=== PATIENT | male | born 1930 | race Caucasian/White ===

== ENCOUNTER 2016-12-17 08:08 | Outpatient (CLI) | payer MEDICARE, OTHER ==
[2016-12-17 19:28] LABS: BASOPHILS # (AUTO) 0.2 10^3/uL (0.0-0.1); BASOPHILS % (AUTO) 3.4 %; EOSINOPHILS % (AUTO) 0.5 %; HCT - HEMATOCRIT 30.1 % (42.0-52.0); HGB - HEMOGLOBIN 10.2 g/dL (14.0-18.0); LYMPHOCYTES # (AUTO) 1.6 10^3/uL (1.5-3.5); LYMPHOCYTES % (AUTO) 22.4 %; MEAN CORPUSCULAR HGB CONC 33.8 g/dL (32.0-36.0); MEAN CORPUSCULAR VOLUME 118.3 fL (80.0-94.0); MEAN PLATELET VOLUME 12.4 fL (7.4-11.4); MONOCYTES # (AUTO) 1.1 10^3/uL (0.0-1.0); MONOCYTES % (AUTO) 14.7 %; NEUTROPHILS # (AUTO) 4.3 10^3/uL (1.5-6.6); NUCLEATED RED BLOOD CELLS AUTO 0.1 /100WBC; RED BLOOD COUNT 2.54 10^6/uL (4.70-6.10); RED CELL DISTRIBUTION WIDTH 14.4 % (12.0-15.0); UNCORRECTED WHITE BLOOD COUNT 7.8 x10^3/uL; WHITE BLOOD COUNT 7.2 x10^3/uL (4.8-10.8)
[2016-12-17 19:40] LABS: ALBUMIN/GLOBULIN RATIO 1.5 (1.0-2.2); BILIRUBIN,TOTAL 1.1 mg/dL (0.2-1.0); BUN - BLOOD UREA NITROGEN 19 mg/dL (6-20); CALCIUM 9.2 mg/dL (8.5-10.3); CARBON DIOXIDE - CO2 27 mmol/L (21-32); CHLORIDE 99 mmol/L (101-111); CHOL/HDL RATIO 2.2 (<5.0); CHOLESTEROL 91 mg/dL; CREATININE 1.3 mg/dL (0.6-1.2); GFR - MDRD 52 (>89); GLUCOSE 98 mg/dL (70-100); HDL CHOLESTEROL 41 mg/dL; POTASSIUM 4.5 mmol/L (3.5-5.0); SODIUM 135 mmol/L (135-145); TRIGLYCERIDES 47 mg/dL; VLDL CHOLESTEROL 9 mg/dL
[2016-12-17 20:00] LABS: PLATELET MORPHOLOGY 4+ GIANT PLATELETS (NORMAL)
[2016-12-17 20:01] LABS: PLATELET ESTIMATE, MANUAL DECREASED (<130,000) (NORMAL)
== END 2016-12-17 08:09 | disposition home or self-care (01) ==
LOC: LAB.R 08:08
PROVIDERS: ATTEND Internal Medicine
DX: D46.9 Myelodysplastic syndrome, unspecified (principal); I25.10 Atherosclerotic heart disease of native coronary artery without angina pectoris; I48.91 Unspecified atrial fibrillation; E78.5 Hyperlipidemia, unspecified; Z79.899 Other long term (current) drug therapy
CPT/HCPCS: 80053; 80061; 85025

== ENCOUNTER 2017-03-05 15:48 | Outpatient (CLI) | payer MEDICARE, OTHER ==
--- NOTE | 2017-03-06 15:55 | XRAY Report ---
CHEST, TWO VIEWS: 03/05/2017 HISTORY: Short of breath. COMPARISON: 03/19/2015 FINDINGS: Prior sternotomy changes. Mild cardiomegaly with right pleural effusion and basilar air-space disease. Additional right upper lobe air-space disease, question infectious versus mass. Suggest followup to complete radiographic clearing. The left lung is clear. No definite left effusion. No pneumothorax. IMPRESSION: AREA OF RIGHT UPPER LOBE AIR-SPACE PROCESS. POSSIBLY INFECTION. FOLLOW UP TO COMPLETE RADIOGRAPHIC CLEARING TO EXCLUDE UNDERLYING MASS IS SUGGESTED. RIGHT PLEURAL EFFUSION AND BASILAR AIR-SPACE DISEASE, ALSO NEW SINCE 2014. MILD CARDIOMEGALY AND CHANGES OF STERNOTOMY. JOB #: [id number] EXT JOB #: [id number] USMAN
== END 2017-03-05 15:49 | disposition home or self-care (01) ==
LOC: DI 15:48
PROVIDERS: ATTEND Internal Medicine
DX: R91.8 Other nonspecific abnormal finding of lung field (principal); J90 Pleural effusion, not elsewhere classified; I51.7 Cardiomegaly
CPT/HCPCS: 71020

== ENCOUNTER 2017-04-18 09:57 | Outpatient (CLI) | payer MEDICARE, OTHER ==
--- NOTE | 2017-04-18 17:55 | XRAY Report ---
DATE OF SERVICE: 04/18/2017 TWO VIEW CHEST: 04/18/2017 CLINICAL INDICATION: Followup pneumonia. COMPARISON: 03/05/2017 Frontal and lateral views of the chest demonstrate a normal cardiac silhouette. Changes of previous cardiac surgery and right subclavian single chamber pacemaker are stable. Right upper lobe infiltrate has decreased. Right pleural effusion has decreased. No new consolidation or pneumothorax is seen. IMPRESSION: Improving right upper lobe infiltrate and right effusion. TD: 04/18/2017 18:54
== END 2017-04-18 09:58 | disposition home or self-care (01) ==
LOC: DI 09:57
PROVIDERS: ATTEND Internal Medicine
DX: J15.9 Unspecified bacterial pneumonia (principal)
CPT/HCPCS: 71046

== ENCOUNTER 2017-06-12 09:49 | Outpatient (CLI) | payer MEDICARE, OTHER ==
--- NOTE | 2017-06-12 10:27 | XRAY Report ---
TWO VIEW CHEST: 06/12/2017. COMPARISON: TWO VIEW CHEST 04/18/2017. INDICATION: Fever. TECHNIQUE FINDINGS: Two views. FINDINGS: There is increasing right upper lobe and right lower lobe airspace disease. No pneumothorax or pleural effusion. ICD is noted. Stable cardiomegaly. IMPRESSION: INCREASED AIR SPACE DISEASE OF THE RIGHT UPPER LOBE AND RIGHT LOWER LOBE. LIKELY PNEUMONIA IN THE CORRECT CLINICAL SETTING. TD: 06/12/2017 10:27 [facility]
[2017-06-12 10:33] LABS: BASOPHILS # (AUTO) 0.1 10^3/uL (0.0-0.1); BASOPHILS % (AUTO) 1.4 %; HGB - HEMOGLOBIN 8.2 g/dL (14.0-18.0); LYMPHOCYTES # (AUTO) 0.7 10^3/uL (1.5-3.5); LYMPHOCYTES % (AUTO) 12.4 %; MEAN CORPUSCULAR HEMOGLOBIN 41.3 pg (27.0-31.0); MEAN CORPUSCULAR HGB CONC 34.2 g/dL (32.0-36.0); MEAN PLATELET VOLUME 9.6 fL (7.4-11.4); MONOCYTES # (AUTO) 1.8 10^3/uL (0.0-1.0); MONOCYTES % (AUTO) 32.9 %; NEUTROPHILS # (AUTO) 2.9 10^3/uL (1.5-6.6); NEUTROPHILS % (AUTO) 53.3 %; PLT - PLATELET COUNT 54 10^3/uL (130-450); RED BLOOD COUNT 1.99 10^6/uL (4.70-6.10); RED CELL DISTRIBUTION WIDTH 15.8 % (12.0-15.0); WHITE BLOOD COUNT 5.4 x10^3/uL (4.8-10.8)
[2017-06-12 10:50] LABS: ALBUMIN 3.6 g/dL (3.2-5.5); ALBUMIN/GLOBULIN RATIO 1.3 (1.0-2.2); BILIRUBIN,TOTAL 0.8 mg/dL (0.2-1.0); CALCIUM 8.4 mg/dL (8.5-10.3); CREATININE 1.2 mg/dL (0.6-1.2); CRP - C-REACTIVE PROTEIN 4.9 mg/dL (0-1.0); TOTAL PROTEIN 6.3 g/dL (6.7-8.2)
[2017-06-12 10:57] LABS: DIFFERENTIAL COMMENT MANUAL=AUTO DIFF
== END 2017-06-12 09:50 | disposition home or self-care (01) ==
LOC: DI 09:49
PROVIDERS: ATTEND Nurse Practitioner Primary Care
DX: R50.9 Fever, unspecified (principal); J98.4 Other disorders of lung
CPT/HCPCS: 36415; 71046; 80053; 83605; 85025; 85651; 86140; 87040

== ENCOUNTER 2017-06-19 09:50 | Observation (INO) | payer MEDICARE, OTHER ==
--- NOTE | 2017-06-19 10:22 | XRAY Report ---
EXAM: CHEST RADIOGRAPHY EXAM DATE: 06/19/2017 10:05 AM. CLINICAL HISTORY: Worsening pna. Cough. COMPARISON: 06/12/2017. TECHNIQUE: 2 views. FINDINGS: Lungs/Pleura: No focal opacities evident. Mild wispy airspace opacity seen before in the lateral righ t suprahilar region is resolved. There is no significant right basilar airspace opacity. No pleural e ffusion. No pneumothorax. Normal volumes. Mediastinum: Mild cardiomegaly, as before. Prior CABG. Pacemaker electrode at the right ventricular a pex, as before. Other: None. IMPRESSION: 1. Lungs are clear. 2. Mild cardiomegaly, as before. [facility] Referring Provider Line: [phone] SITE ID: [id number]
--- NOTE | 2017-06-19 10:22 | XRAY Preliminary Report ---
Exam: XR CHEST 2 VIEW X-RAY IMPRESSION: 1. Lungs are clear. 2. Mild cardiomegaly, as before. [facility] SITE ID: [id number]
[2017-06-19 10:45] LABS: BASOPHILS % (AUTO) 1.2 %; EOSINOPHILS % (AUTO) 1.4 %; HGB - HEMOGLOBIN 8.2 g/dL (14.0-18.0); LYMPHOCYTES % (AUTO) 12.1 %; MEAN CORPUSCULAR HEMOGLOBIN 40.2 pg (27.0-31.0); MEAN CORPUSCULAR HGB CONC 33.7 g/dL (32.0-36.0); MEAN CORPUSCULAR VOLUME 119.3 fL (80.0-94.0); MEAN PLATELET VOLUME 11.5 fL (7.4-11.4); MONOCYTES % (AUTO) 16.3 %; PLT - PLATELET COUNT 89 10^3/uL (130-450); RED BLOOD COUNT 2.04 10^6/uL (4.70-6.10); RED CELL DISTRIBUTION WIDTH 15.1 % (12.0-15.0); WHITE BLOOD COUNT 11.1 x10^3/uL (4.8-10.8)
[2017-06-19 10:55] LABS: CALCIUM 8.6 mg/dL (8.5-10.3); CREATININE 0.8 mg/dL (0.6-1.2)
[2017-06-19 11:03] LABS: ABNORMAL LYMPHS % (MANUAL) 0 %
--- NOTE | 2017-06-19 11:04 | ED Physician Documentation ---
History of Present Illness - Stated complaint Stated Complaint: Productive cough, fever - Chief complaint Chief Complaint: Resp - Additonal information Additional information: hx from pt 87 male sick for 10-12 days productive cough soa seen by PMD - had pna on CXR labs including blood cx and lactate reassuirng - felt safe to tx as an outpt and was doing better until last night when acutely more SOA back to PMD this AM and had gissel rales and ronchi and labored work of breathing so sent to ED also has gissel LE edema no abd pain NVD but has had loose black stools recently - on pradaxa Review of Systems Constitutional: reports: Myalgias, Fatigue. denies: Fever Cardiac: denies: Chest pain / pressure Respiratory: reports: Dyspnea, Cough GI: reports: Bloody / black stool. denies: Abdominal Pain, Vomiting Musculoskeletal: reports: Extremity swelling Neurologic: reports: Generalized weakness Endocrine: reports: Easy bruising / bleeding Immunocompromised: denies: Immunocompromised PD PAST MEDICAL HISTORY - Past Medical History Cardiovascular: Hypertension, High cholesterol, Coronary artery disease Respiratory: None Neuro: None Endocrine/Autoimmune: None GI: GERD : None HEENT: None Musculoskeletal: None Derm: Rosacea - Past Surgical History Past Surgical History: Yes General: Cholecystectomy, Appendectomy, Bowel surgery Cardiovascular: Pacemaker HEENT: Tonsil/Adenoidectomy - Present Medications Home Medications: Ambulatory Orders Medication Instructions Recorded Confirmed Atorvastatin Calcium 40 mg PO DAILY 12/23/12 06/19/17 Dabigatran Etexilate Mesylate 150 mg PO BID 12/23/12 06/19/17 [Pradaxa] Fish Oil Liquid 1 tsp PO DAILY 12/23/12 06/19/17 Lisinopril [Zestril] 10 mg PO DAILY 12/23/12 06/19/17 Metoprolol Succinate [Toprol Xl] 100 mg PO BID 12/23/12 06/19/17 Metromazole 0.75% 0 mg TOP DAILY 12/23/12 06/19/17 Multivitamin [Multivitamins] 1 each PO DAILY 12/23/12 06/19/17 - Allergies Allergies/Adverse Reactions: Allergies Allergy/AdvReac Type Severity Reaction Status Date / Time Penicillins Allergy Edema Verified 06/19/17 10:10 Sulfa (Sulfonamide Allergy Rash Verified 06/19/17 10:10 Antibiotics) - Social History Does the pt smoke?: No Smoking Status: Never smoker Does the pt drink ETOH?: No Does the pt have substance abuse?: No - Immunizations Immunizations are current?: Yes - POLST Patient has POLST: Yes PD ED PE NORMAL - Vitals Vital signs reviewed: Yes - General General: Alert and oriented X 3 - HEENT HEENT: PERRL - Neck Neck: Supple, no meningeal sign - Cardiac Cardiac: RRR - Respiratory Respiratory: Other (gissel ronchi and rales) - Abdomen Abdomen: Soft, Non tender - Rectal Rectal: Other (mostly mucous, pink, occult blood +, QC passed) - Derm Derm: Other (pale) - Extremities Extremities: Other (+ gissel edema) - Neuro Neuro: Alert and oriented X 3 Results - Vitals Vitals: Vital Signs - 24 hr 06/19/17 06/19/17 06/19/17 10:07 11:16 11:23 Temperature 36.6 C 36.4 C L Heart Rate 59 L 58 L 59 L Respiratory 16 22 18 Rate Blood Pressure 141/74 H 135/63 H 155/75 H O2 Saturation 100 100 100 Oxygen O2 Source Room air - EKG (time done) 1220 Rate: Rate (enter#) (60) Other comments: Other comments (appears to be paced at 60) - Labs Labs: Laboratory Tests 06/19/17 06/19/17 06/19/17 10:30 10:30 10:30 WBC 11.1 H RBC 2.04 L Hgb 8.2 L Hct 24.3 L MCV 119.3 H MCH 40.2 H MCHC 33.7 RDW 15.1 H Plt Count 89 L MPV 11.5 H Neut # Not Reportable Lymph # Not Reportable Nolan # Not Reportable Eos # Not Reportable Baso # Not Reportable Absolute Nucleated RBC Not Reportable Total Counted 100 Band Neuts % (Manual) 5 Abnorm Lymph % (Manual) 0 Metamyelocytes % 2 H Nucleated RBC % Not Reportable Neutrophils # (Manual) 7.9 H Lymphocytes # (Manual) 2.0 Monocytes # (Manual) 0.9 Eosinophils # (Manual) 0.1 Basophils # (Manual) 0.0 Differential Comment MANUAL DIFFERENTIAL Manual Slide Review Indicated Platelet Estimate DECREASED (<130,000) Platelet Morphology 2+ GIANT PLATELETS RBC Morph Micro Appear 2+ SPHEROCYTES Sodium 132 L Potassium 4.3 Chloride 100 L Carbon Dioxide 24 Anion Gap 8.0 BUN 15 Creatinine 0.8 Estimated GFR (MDRD) 91 Glucose 108 H Lactic Acid 1.7 Calcium 8.6 Troponin I B-Natriuretic Peptide Influenza A (Rapid) Influenza B (Rapid) Influenza Types A,B Ag 06/19/17 06/19/17 06/19/17 10:30 10:30 10:32 WBC RBC Hgb Hct MCV MCH MCHC RDW Plt Count MPV Neut # Lymph # Nolan # Eos # Baso # Absolute Nucleated RBC Total Counted Band Neuts % (Manual) Abnorm Lymph % (Manual) Metamyelocytes % Nucleated RBC % Neutrophils # (Manual) Lymphocytes # (Manual) Monocytes # (Manual) Eosinophils # (Manual) Basophils # (Manual) Differential Comment Manual Slide Review Platelet Estimate Platelet Morphology RBC Morph Micro Appear Sodium Potassium Chloride Carbon Dioxide Anion Gap BUN Creatinine Estimated GFR (MDRD) Glucose Lactic Acid Calcium Troponin I < 0.04 B-Natriuretic Peptide 826 H Influenza A (Rapid) Negative Influenza B (Rapid) Negative Influenza Types A,B Ag - - Rads (name of study) CXR Radiology: See rad report (prior R pna improved) PD MEDICAL DECISION MAKING - ED course ED course: prior pna resolved on CXR but now pt seems to be more CHF than pna - rales, swelling, elev BNP sx started overnight and trop neg so far add on EKG hx CAD and PPM, but no hx CHF, will give lasix but pt prob merits admit for serial trop and an echo given that CHF is new onset also anemic and heme + stool and on pradaxa - but hgb similar to prior so this is a more subacute issue so doubt that cause the acute SOA Departure - Departure Disposition: ED Place in Observation Clinical Impression: CHF (congestive heart failure) Qualifiers: Congestive heart failure type: unspecified Congestive heart failure chronicity : acute Qualified Code(s): I50.9 - Heart failure, unspecified GIB (gastrointestinal bleeding) Qualifiers: GI bleed type/associated pathology: unspecified gastrointestinal hemorrhage type Qualified Code(s): K92.2 - Gastrointestinal hemorrhage, unspecified Anemia Qualifiers: Anemia type: unspecified type Qualified Code(s): D64.9 - Anemia, unspecified Condition: Good
[2017-06-19 11:08] LABS: BAND NEUTROPHILS % (MANUAL) 5 %; EOSINOPHILS # (MANUAL) 0.1 10^3/uL (0-0.7); LYMPHOCYTES % (MANUAL) 18 %; METAMYELOCYTES % (MANUAL) 2 %; MONOCYTES # (MANUAL) 0.9 10^3/uL (0.0-1.0); NEUTROPHILS # (MANUAL) 7.9 10^3/uL (1.5-6.6); NEUTROPHILS % (MANUAL) 66 %
[2017-06-19 11:11] LABS: DIFFERENTIAL COMMENT MANUAL DIFFERENTIAL; PLATELET ESTIMATE, MANUAL DECREASED (<130,000) (NORMAL); PLATELET MORPHOLOGY 2+ GIANT PLATELETS (NORMAL)
[2017-06-19] MEDS ORDERED: FUROSEMIDE 40 MG/4 ML VIAL IVP STA (12:32)
[2017-06-19] MEDS ORDERED: TEMAZEPAM 15 MG CAPSULE PO PRN (14:35)
[2017-06-19] MEDS ORDERED: ACETAMINOPHEN 325 MG TABLET PO PRN (14:35)
[2017-06-19] MEDS ORDERED: ONDANSETRON 4 MG/2 ML VIAL IVP PRN (14:35)
[2017-06-19] MEDS ORDERED: SODIUM CHLORIDE FLUSH 0.9% 10 ML SYRINGE IVP PRN (14:35)
[2017-06-19] MEDS ORDERED: PROCHLORPERAZINE 10 MG/2 ML VIAL IVP PRN (14:35)
[2017-06-19] MEDS ORDERED: IPRATROPIUM/ALBUTEROL 3 ML NEB INH PRN (15:27)
--- NOTE | 2017-06-19 15:27 | HISTORY & PHYSICAL EXAMINATION ---
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 The patient states that he was in his normal state of health until about 10 days ago when he began having fever, cough and shortness of air. At that time the patient saw his primary care physician and was diagnosed with pneumonia. The patient was placed on azithromycin which he completed the course for 2 days ago. The patient states that he was feeling improved but last night began having labored breathing. Patient states that this morning he continued to have shortness of air. He states he also noticed that he had increased lower extremity swelling which drastically increased over the course of the last 24 hours. The patient denied any orthopnea or PND. The patient also denied any chest pain. The patient denied any palpitations. The patient states that he is very active and runs on a treadmill every other day. He states as long as he is walking or running on a flat surface he does not feel short of breath at baseline. He states when he does go up the hill like he did with his wheelbarrow a couple of weeks ago he does become short of breath. The patient states that he has noted that over the last month he has had gradually worsening shortness of breath. The patient denies any headaches, blurred vision, runny nose, sore throat, nasal congestion, difficulty swallowing, fevers, chills, abdominal pain, nausea , vomiting, diarrhea, constipation, increased urinary urgency, frequency or dysuria. The patient also denies any muscle aches, joint pains, joint swelling , back pain, neck stiffness, recent unintentional weight loss, changes in his appetite, hair loss, skin changes, night sweats or any focal neurologic deficits. On presentation to the emergency department the patient is afebrile he is slightly bradycardic with heart rate of 59 which is paced, mildly hypertensive but saturating well on room air. The patient continues to complain of shortness of breath especially with exertion. The patient's initial lab work showed a WBC of 11.1, hemoglobin of 8.2 and platelet count of 89. The patient' s hemoglobin and platelet count are chronically low. The patient was also found to be slightly hyponatremic with a sodium of 132 and had a significantly elevated BNP of 826. Patient's initial troponin was less than 0.04. The patient's flu swab was negative. The patient did undergo a chest x-ray in the emergency department which showed mild cardiomegaly and resolved airspace opacity in the right suprahilar area. The patient's EKG was paced and there was no significant ST changes. Given the patient's presentation it appears that he likely has new onset heart failure and is being placed in observation for an echocardiogram and treatment with Lasix. History - Past Medical History Cardiovascular: reports: Hypertension, High cholesterol, Coronary artery disease , Atrial fibrillation Respiratory: reports: None Neuro: reports: None Endocrine/Autoimmune: reports: None GI: reports: GERD : reports: None HEENT: reports: None Musculoskeletal: reports: None Derm: reports: Rosacea - Past Surgical History General: reports: Cholecystectomy, Appendectomy, Bowel surgery Cardiovascular: reports: Pacemaker HEENT: reports: Tonsil/Adenoidectomy - Family & Social History Family History: Mother: , CAD, Hypertension, Father: , CAD, Hypertension, Brother: Cancer (prostate cancer brother and grandfather), Other family: Cancer Living arrangement: At home Living Situation: With spouse/s.o. Social History Notes: Patient is originally from [place]. 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 He and his moved would be [place] to retire and have been living here ever since. They have 2 grown children both boys. 1 of his sons is here visiting him and lives in [place]. The patient does not smoke cigarettes but he does drink one bourbon and water at night. He denies any illicit drug use. - POLST Patient has POLST: Yes POLST Status: Full Code Meds/Allgy - Home Medications Home Medications: Ambulatory Orders Medication Instructions Recorded Confirmed Atorvastatin Calcium 40 mg PO DAILY 12/23/12 06/19/17 Dabigatran Etexilate Mesylate 150 mg PO BID 12/23/12 06/19/17 [Pradaxa] Fish Oil Liquid 1 tsp PO DAILY 12/23/12 06/19/17 Multivitamin [Multivitamins] 1 each PO DAILY 12/23/12 06/19/17 metroNIDAZOLE [Metronidazole] 1 applic TOP DAILY 12/23/12 06/19/17 Lisinopril [Zestril] 10 mg PO DAILY 06/19/17 06/19/17 Metoprolol Succinate [Toprol Xl] 100 mg PO BID 06/19/17 06/19/17 - Allergies Allergies/Adverse Reactions: Allergies Allergy/AdvReac Type Severity Reaction Status Date / Time Penicillins Allergy Edema Verified 06/19/17 10:10 Sulfa (Sulfonamide Allergy Rash Verified 06/19/17 10:10 Antibiotics) Review of Systems - Other Findings Other Findings: A comprehensive review of systems was performed the pertinent positives and negatives are stated above in the HPI and the remainder of the review of systems is negative. Exam - Vital Signs Reviewed Vital Signs: Yes Vital Signs: Vital Signs x48h Temp Pulse Resp BP Pulse Ox 06/19/17 11:23 59 L 18 155/75 H 100 06/19/17 11:16 36.4 C L 58 L 22 135/63 H 100 06/19/17 10:07 36.6 C 59 L 16 141/74 H 100 - Physical Exam General Appearance: positive: No acute distress, Alert Eyes Bilateral: positive: Normal inspection, PERRL, EOMI, No lid inflammation, Conjunctivae nml, No scleral icterus ENT: positive: ENT inspection nml, Pharynx nml, No signs of dehydration. negative: Purulent nasal drainage, Pharyngeal erythema, Oral lesions Neck: positive: Nml inspection, Thyroid nml, No JVD, Trachea midline. negative : Thyromegaly, Lymphadenopathy (R), Lymphadenopathy (L), Carotid bruit, Tracheal deviation Respiratory: positive: Chest non-tender, Wheezes (scattered), Rales (Bilateral about a third of the way up the lung) Cardiovascular: positive: Regular rate & rhythm, No murmur, No gallop Peripheral Pulses: positive: 2+ Abdomen: positive: Non-tender, No organomegaly, Nml bowel sounds, No distention. negative: Guarding, Rebound, Hepatomegaly Back: positive: Nml inspection. negative: CVA tenderness (R), CVA tenderness (L ) Skin: positive: Color nml, No rash, Warm. negative: Cyanosis, Diaphoresis, Pallor Extremities: positive: Non-tender, Full ROM, Nml appearance, Pedal edema (3+ bilateral). negative: Joint swelling Neurologic/Psychiatric: positive: Oriented x3, CN's nml (2-12), Motor nml, Sensation nml, Mood/affect nml Conclusion/Plan - Problem List (1) CHF (congestive heart failure) Conclusion/Plan: Patient presented with shortness of air occurring acutely overnight with increased lower extremity swelling and crackles on examination as well as elevated BNP. Patient has recently been treated for pneumonia and pneumonia appears to have resolved on chest x-ray. Although chest x-ray is not showing pulmonary vascular congestion it does show cardiomegaly. The patient does not have an elevated JVD or orthopnea. The patient does have history of coronary artery disease. This presentation appears most likely to be due to an acute congestive heart failure at this point without an echocardiogram it is impossible to say whether this is systolic or diastolic heart failure. Given the acute presentation patient will need further cardiac workup. Plan: Echocardiogram IV Lasix twice daily Fluid restriction 2 L Sodium restriction 2 g Strict I's and O's Daily weights Serial troponins Telemetry monitoring Qualifiers: Congestive heart failure type: unspecified Congestive heart failure chronicity: acute Qualified Code(s): I50.9 - Heart failure, unspecified (2) Hypertension Conclusion/Plan: Patient has history of hypertension and on presentation to the emergency department the patient is slightly hypertensive. Patient will be continued on his home blood pressure medications We will monitor blood pressure close We will titrate medications as needed Qualifiers: Hypertension type: essential hypertension Qualified Code(s): I10 - Essential (primary) hypertension (3) Atrial fibrillation Conclusion/Plan: Patient has history of atrial fibrillation and has a chronic pacemaker The patient appears to have controlled rate and rhythm on presentation Patient is on metoprolol and Pradaxa for anticoagulation We will continue the patient on his home medications and monitor on telemetry Qualifiers: Atrial fibrillation type: chronic Qualified Code(s): I48.2 - Chronic atrial fibrillation (4) Myelodysplastic syndrome Conclusion/Plan: Patient has history of myelodysplastic disorder and follows with Dr. 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 Patient's hemoglobin and platelet count appear to be stable Patient's low hemoglobin may also be contributing to his symptoms of shortness of breath (5) Hyperlipidemia Conclusion/Plan: Patient has history of hyperlipidemia and is on Lipitor at home we will continue his home dose of Lipitor Stable Qualifiers: Hyperlipidemia type: unspecified Qualified Code(s): E78.5 - Hyperlipidemia , unspecified - Lab Results Lab results reviewed: Yes Fish Bones: 06/19/17 10:30 06/19/17 10:30 Other Lab Results: Laboratory Results WBC 11.1 x10^3/uL (4.8-10.8) H 06/19/17 10:30 RBC 2.04 10^6/uL (4.70-6.10) L 06/19/17 10:30 Hgb 8.2 g/dL (14.0-18.0) L 06/19/17 10:30 Hct 24.3 % (42.0-52.0) L 06/19/17 10:30 MCV 119.3 fL (80.0-94.0) H 06/19/17 10:30 MCH 40.2 pg (27.0-31.0) H 06/19/17 10:30 MCHC 33.7 g/dL (32.0-36.0) 06/19/17 10:30 RDW 15.1 % (12.0-15.0) H 06/19/17 10:30 Plt Count 89 10^3/uL (130-450) L 06/19/17 10:30 MPV 11.5 fL (7.4-11.4) H 06/19/17 10:30 Neut # Not Reportable 06/19/17 10:30 Lymph # Not Reportable 06/19/17 10:30 [place] # Not Reportable 06/19/17 10:30 Eos # Not Reportable 06/19/17 10:30 Baso # Not Reportable 06/19/17 10:30 Absolute Nucleated RBC Not Reportable 06/19/17 10:30 Total Counted 100 06/19/17 10:30 Band Neuts % (Manual) 5 % (0-10) 06/19/17 10:30 Abnorm Lymph % (Manual) 0 % 06/19/17 10:30 Metamyelocytes % 2 % (-0) H 06/19/17 10:30 Nucleated RBC % Not Reportable 06/19/17 10:30 Neutrophils # (Manual) 7.9 10^3/uL (1.5-6.6) H 06/19/17 10:30 Lymphocytes # (Manual) 2.0 10^3/uL (1.5-3.5) 06/19/17 10:30 Monocytes # (Manual) 0.9 10^3/uL (0.0-1.0) 06/19/17 10:30 Eosinophils # (Manual) 0.1 10^3/uL (0-0.7) 06/19/17 10:30 Basophils # (Manual) 0.0 10^3/uL (0-0.1) 06/19/17 10:30 Differential Comment MANUAL DIFFERENTIAL 06/19/17 10:30 Manual Slide Review Indicated 06/19/17 10:30 Platelet Estimate DECREASED (<130,000) (NORMAL) 06/19/17 10:30 Platelet Morphology 2+ GIANT PLATELETS (NORMAL) 06/19/17 10:30 RBC Morph Micro Appear 1+ POLYCHROMASIA (NORMAL) 2+ MACROCYTOSIS (NORMAL) 2+ SPHEROCYTES (NORMAL) 06/19/17 10:30 RBC Morph Micro Appear 1+ POLYCHROMASIA (NORMAL) 2+ MACROCYTOSIS (NORMAL) 2+ SPHEROCYTES (NORMAL) 06/19/17 10:30 RBC Morph Micro Appear 1+ POLYCHROMASIA (NORMAL) 2+ MACROCYTOSIS (NORMAL) 2+ SPHEROCYTES (NORMAL) 06/19/17 10:30 Sodium 132 mmol/L (135-145) L 06/19/17 10:30 Potassium 4.3 mmol/L (3.5-5.0) 06/19/17 10:30 Chloride 100 mmol/L (101-111) L 06/19/17 10:30 Carbon Dioxide 24 mmol/L (21-32) 06/19/17 10:30 Anion Gap 8.0 (6-13) 06/19/17 10:30 BUN 15 mg/dL (6-20) 06/19/17 10:30 Creatinine 0.8 mg/dL (0.6-1.2) 06/19/17 10:30 Estimated GFR (MDRD) 91 (>89) 06/19/17 10:30 Glucose 108 mg/dL (70-100) H 06/19/17 10:30 Lactic Acid 1.7 mmol/L (0.5-2.2) 06/19/17 10:30 Calcium 8.6 mg/dL (8.5-10.3) 06/19/17 10:30 Troponin I < 0.04 ng/mL (<0.49) 06/19/17 10:30 B-Natriuretic Peptide 826 pg/mL (5-100) H 06/19/17 10:30 Influenza A (Rapid) Negative (Negative) 06/19/17 10:32 Influenza B (Rapid) Negative (Negative) 06/19/17 10:32 Influenza Types A,B Ag - 06/19/17 10:32 - Diagnostic Imaging Results Diagnostic Imaging Results: positive: Final report reviewed Diagnostic Imaging Results Comments: EXAM: [id number] ([id number]) EXAM: CHEST RADIOGRAPHY EXAM DATE: 06/19/2017 10:05 AM. CLINICAL HISTORY: Worsening pna. Cough. COMPARISON: 06/12/2017. TECHNIQUE: 2 views. FINDINGS: Lungs/Pleura: No focal opacities evident. Mild wispy airspace opacity seen before in the lateral right suprahilar region is resolved. There is no significant right basilar airspace opacity. No pleural effusion. No pneumothorax. Normal volumes. Mediastinum: Mild cardiomegaly, as before. Prior CABG. Pacemaker electrode at the right ventricular apex, as before. Other: None. IMPRESSION: 1. Lungs are clear. 2. Mild cardiomegaly, as before. - EKG Results EKG Interpreted Independently: Yes EKG Findings: Paced, no ST elevations Core Measures - Anticipated LOS I expect patient to be DC'd or transferred within 96 hours.: Yes - DVT/VTE - Prophylaxis VTE/DVT Device ordered at admit?: Yes
[2017-06-19] MEDS: FUROSEMIDE 40 MG/4 ML VIAL IVP SCH (18:03)
[2017-06-19] MEDS: SODIUM CHLORIDE FLUSH 0.9% 10 ML SYRINGE IVP SCH (18:03)
[2017-06-19] MEDS: METOPROLOL SUCCINATE 50 MG TABLET PO SCH (21:05)
[2017-06-19] MEDS: DABIGATRAN 75 MG CAPSULE PO SCH (21:06)
[2017-06-20] MEDS ORDERED: CEFEPIME 1 GM in SODIUM CHLORIDE 0.9% MINIBAG 100 ML IV SCH (01:00)
[2017-06-20] MEDS: SODIUM CHLORIDE FLUSH 0.9% 10 ML SYRINGE IVP SCH ×2 (01:08→08:49)
[2017-06-20] MEDS: FUROSEMIDE 40 MG/4 ML VIAL IVP SCH (07:06)
[2017-06-20 07:26] LABS: ALBUMIN 3.1 g/dL (3.2-5.5); BILIRUBIN,TOTAL 0.8 mg/dL (0.2-1.0); CALCIUM 8.2 mg/dL (8.5-10.3); CREATININE 0.8 mg/dL (0.6-1.2); MAGNESIUM 1.7 mg/dL (1.7-2.8); TOTAL PROTEIN 6.1 g/dL (6.7-8.2)
[2017-06-20 07:36] LABS: INR 1.6 (0.8-1.2); PT - PROTHROMBIN TIME 17.4 secs (9.9-12.6)
[2017-06-20 07:38] LABS: EOSINOPHILS % (AUTO) 0.6 %; HGB - HEMOGLOBIN 7.8 g/dL (14.0-18.0); LYMPHOCYTES % (AUTO) 20.9 %; MEAN CORPUSCULAR HEMOGLOBIN 39.3 pg (27.0-31.0); MEAN CORPUSCULAR HGB CONC 32.8 g/dL (32.0-36.0); MEAN CORPUSCULAR VOLUME 119.8 fL (80.0-94.0); MONOCYTES % (AUTO) 19.9 %; NEUTROPHILS % (AUTO) 56.6 %; RED BLOOD COUNT 1.99 10^6/uL (4.70-6.10); RED CELL DISTRIBUTION WIDTH 15.3 % (12.0-15.0); WHITE BLOOD COUNT 9.6 x10^3/uL (4.8-10.8)
[2017-06-20] MEDS ORDERED: POTASSIUM CHLORIDE 20 MEQ TABLET PO SCH (08:00)
[2017-06-20] MEDS ORDERED: MULTIVITAMIN TABLET PO SCH (08:00)
[2017-06-20 08:31] LABS: ABNORMAL LYMPHS % (MANUAL) 0 %
[2017-06-20] MEDS: DABIGATRAN 75 MG CAPSULE PO SCH (08:48)
[2017-06-20] MEDS: METOPROLOL SUCCINATE 50 MG TABLET PO SCH (08:49)
[2017-06-20 08:53] LABS: BAND NEUTROPHILS % (MANUAL) 2 %; EOSINOPHILS # (MANUAL) 0.1 10^3/uL (0-0.7); LYMPHOCYTES # (MANUAL) 1.8 10^3/uL (1.5-3.5); LYMPHOCYTES % (MANUAL) 19 %; MONOCYTES # (MANUAL) 1.5 10^3/uL (0.0-1.0); NEUTROPHILS # (MANUAL) 6.1 10^3/uL (1.5-6.6); NEUTROPHILS % (MANUAL) 62 %
[2017-06-20 08:55] LABS: DIFFERENTIAL COMMENT MANUAL DIFFERENTIAL
[2017-06-20] MEDS ORDERED: LISINOPRIL 5 MG TABLET PO SCH (09:00)
[2017-06-20] MEDS ORDERED: FAMOTIDINE 20 MG TABLET PO SCH (09:00)
[2017-06-20] MEDS ORDERED: ATORVASTATIN 40 MG TABLET PO SCH (09:00)
[2017-06-20] MEDS ORDERED: POLYETHYLENE GLYCOL 3350 17 GM PACKET PO SCH (09:00)
[2017-06-20 09:20] LABS: PLATELET ESTIMATE, MANUAL NORMAL (130-450,000) (NORMAL)
[2017-06-20 09:23] LABS: PLT - PLATELET COUNT 108 10^3/uL (130-450)
--- NOTE | 2017-06-20 11:07 | Discharge Plan ---
Discharge Plan Disposition: Home, Self Care Condition: Good Prescriptions: Furosemide [Lasix] 40 mg PO DAILY #30 tablet Potassium Chloride [K-Dur] 20 meq PO DAILY #30 tablet Diet: Cardiac Activity Restrictions: Activity as Tolerated Shower Restrictions: No Driving Restrictions: No Weight Bearing: Full Weight Instruction Topics: Heart Failure Meds Control, Heart Failure, Heart Failure Warning Signs, Heart Failure Tracking Weight, Heart Failure Being Active, Heart Failure Helpful Procedures, Heart Failure Diet Changes, Heart Failure Helpful Meds Additional Instructions or Follow Up instructions: You presented to the emergency department with shortness of breath and leg edema. We found that you have congestive heart failure and your ejection fraction is 45% which is decreased. You improved significantly with lasix and will be continued on lasix at home. You are already on optimal treatment with metoprolol and lisinopril which you should continue. I am also prescribing you potassium along with the lasix because lasix can cause you to lose potassium. Please follow up with your shipping and receiving assistant in 2 weeks. Follow-Up Care: [facility] - CHF Classes No Smoking: If you smoke, Please STOP! Call for help. Follow-up with: Boris Wilkerson MD [Primary Care Provider] -
[2017-06-20 12:51] VITALS: BP 104/50
--- NOTE | 2017-06-20 14:12 | DISCHARGE SUMMARY ---
Discharge Summary Admit Date: 06/19/17 Discharge Date: 06/20/17 Discharging Provider: Lalito Lin MD Primary Care Provider: Boris Wilkerson MD Code Status: Attempt Resuscitation Condition at Discharge: Good Discharge Disposition: 01 Home, Self Care - DIAGNOSES Admission Diagnoses: 1. Acute congestive heart failure, unspecified 2. Essential hypertension 3. Chronic atrial fibrillation 4. Myelodysplastic syndrome 5. Hyperlipidemia, unspecified Discharge Diagnoses with Status of Each Condition: 1. Acute systolic heart failure 2. Essential hypertension 3. Chronic atrial fibrillation 4. Myelodysplastic syndrome 5. Hyperlipidemia, unspecified - HPI History of Present Illness: Patient is an 87-year-old gentleman with a past medical history significant for coronary artery disease status post 5 way bypass, hypertension, atrial fibrillation on Pradaxa, myelodysplastic syndrome with chronic anemia and thrombocytopenia who presents to the emergency department with a chief complaint of shortness of air. The patient states that he was in his normal state of health until about 10 days ago when he began having fever, cough and shortness of air. At that time the patient saw his primary care physician and was diagnosed with pneumonia. The patient was placed on azithromycin which he completed the course for 2 days ago. The patient states that he was feeling improved but last night began having labored breathing. Patient states that this morning he continued to have shortness of air. He states he also noticed that he had increased lower extremity swelling which drastically increased over the course of the last 24 hours. The patient denied any orthopnea or PND. The patient also denied any chest pain. The patient denied any palpitations. The patient states that he is very active and runs on a treadmill every other day. He states as long as he is walking or running on a flat surface he does not feel short of breath at baseline. He states when he does go up the hill like he did with his wheelbarrow a couple of weeks ago he does become short of breath. The patient states that he has noted that over the last month he has had gradually worsening shortness of breath. The patient denies any headaches, blurred vision, runny nose, sore throat, nasal congestion, difficulty swallowing, fevers, chills, abdominal pain, nausea , vomiting, diarrhea, constipation, increased urinary urgency, frequency or dysuria. The patient also denies any muscle aches, joint pains, joint swelling , back pain, neck stiffness, recent unintentional weight loss, changes in his appetite, hair loss, skin changes, night sweats or any focal neurologic deficits. On presentation to the emergency department the patient is afebrile he is slightly bradycardic with heart rate of 59 which is paced, mildly hypertensive but saturating well on room air. The patient continues to complain of shortness of breath especially with exertion. The patient's initial lab work showed a WBC of 11.1, hemoglobin of 8.2 and platelet count of 89. The patient' s hemoglobin and platelet count are chronically low. The patient was also found to be slightly hyponatremic with a sodium of 132 and had a significantly elevated BNP of 826. Patient's initial troponin was less than 0.04. The patient's flu swab was negative. The patient did undergo a chest x-ray in the emergency department which showed mild cardiomegaly and resolved airspace opacity in the right suprahilar area. The patient's EKG was paced and there was no significant ST changes. Given the patient's presentation it appears that he likely has new onset heart failure and is being placed in observation for an echocardiogram and treatment with Lasix. - HOSPITAL COURSE Hospital Course: Patient was admitted and treated with IV Lasix. Patient had good urine output and had significant relief to his shortness of breath. The patient was able to ambulate and walk 30 feet without any significant respiratory issues. Patient did undergo an echocardiogram which showed an ejection fraction of 40-45% which was mildly impaired. He also had severely abnormal right heart pressures with severe tricuspid regurgitation and a right ventricular systolic pressure of 80 mmHg. Given his significant improvement overnight the patient was discharged home with oral Lasix he will take 40 mg of Lasix daily along with potassium replacement. The patient will continue on metoprolol and lisinopril for optimal treatment of congestive heart failure. The patient was also continued on his Pradaxa for his atrial fibrillation and Lipitor. The patient has a scheduled appointment with his income tax return preparer in 2 weeks and was told to follow- up with his income tax return preparer for further care. The patient did have serial troponins while he was hospitalized which were negative and the patient did not have any new EKG changes. - ALLERGIES Allergies/Adverse Reactions: Allergies Allergy/AdvReac Type Severity Reaction Status Date / Time Penicillins Allergy Edema Verified 06/19/17 10:10 Sulfa (Sulfonamide Allergy Rash Verified 06/19/17 10:10 Antibiotics) - MEDICATIONS Home Medications: Ambulatory Orders Medication Instructions Recorded Confirmed Atorvastatin Calcium 40 mg PO DAILY 12/23/12 06/19/17 Dabigatran Etexilate Mesylate 150 mg PO BID 12/23/12 06/19/17 [Pradaxa] Fish Oil Liquid 1 tsp PO DAILY 12/23/12 06/19/17 Multivitamin [Multivitamins] 1 each PO DAILY 12/23/12 06/19/17 metroNIDAZOLE [Metronidazole] 1 applic TOP DAILY 12/23/12 06/19/17 Lisinopril [Zestril] 10 mg PO DAILY 06/19/17 06/19/17 Metoprolol Succinate [Toprol Xl] 100 mg PO BID 06/19/17 06/19/17 Furosemide [Lasix] 40 mg PO DAILY #30 tablet 06/20/17 Potassium Chloride [K-Dur] 20 meq PO DAILY #30 tablet 06/20/17 - PHYSICAL EXAM AT DISCHARGE General Appearance: positive: No acute distress, Alert Eyes Bilateral: positive: Normal inspection, PERRL, EOMI, No lid inflammation, Conjunctivae nml, No scleral icterus ENT: positive: ENT inspection nml, Pharynx nml, No signs of dehydration. negative: Purulent nasal drainage, Pharyngeal erythema, Oral lesions Neck: positive: Nml inspection, Thyroid nml, No JVD, Trachea midline. negative : Thyromegaly, Lymphadenopathy (R), Lymphadenopathy (L), Stiff neck, Carotid bruit, Tracheal deviation Respiratory: positive: Chest non-tender, No respiratory distress, Breath sounds nml, Rales (bases), Rhonchi (upper lobes) Cardiovascular: positive: Irregularly irregular, Systolic murmur Peripheral Pulses: positive: 2+ Abdomen: positive: Non-tender, No organomegaly, Nml bowel sounds, No distention. negative: Guarding, Rebound, Hepatomegaly Back: positive: Nml inspection. negative: CVA tenderness (R), CVA tenderness (L ) Skin: positive: Color nml, No rash, Warm. negative: Diaphoresis, Pallor Extremities: positive: Non-tender, Full ROM, Nml appearance, No pedal edema Neurologic/Psychiatric: positive: Oriented x3, CN's nml (2-12), Motor nml, Sensation nml, Mood/affect nml - LABS Result Diagrams: 06/20/17 06:58 06/20/17 06:58 Other Lab Results: Laboratory Results WBC 9.6 x10^3/uL (4.8-10.8) 06/20/17 06:58 RBC 1.99 10^6/uL (4.70-6.10) L 06/20/17 06:58 Hgb 7.8 g/dL (14.0-18.0) L 06/20/17 06:58 Hct 23.9 % (42.0-52.0) L 06/20/17 06:58 MCV 119.8 fL (80.0-94.0) H 06/20/17 06:58 MCH 39.3 pg (27.0-31.0) H 06/20/17 06:58 MCHC 32.8 g/dL (32.0-36.0) 06/20/17 06:58 RDW 15.3 % (12.0-15.0) H 06/20/17 06:58 Plt Count 108 10^3/uL (130-450) L 06/20/17 06:58 MPV 12.0 fL (7.4-11.4) H 06/20/17 06:58 Neut # Not Reportable 06/20/17 06:58 Lymph # Not Reportable 06/20/17 06:58 [place] # Not Reportable 06/20/17 06:58 Eos # Not Reportable 06/20/17 06:58 Baso # Not Reportable 06/20/17 06:58 Absolute Nucleated RBC Not Reportable 06/20/17 06:58 Total Counted 100 06/20/17 06:58 Band Neuts % (Manual) 2 % (0-10) 06/20/17 06:58 Abnorm Lymph % (Manual) 0 % 06/20/17 06:58 Metamyelocytes % 2 % (-0) H 06/19/17 10:30 Nucleated RBC % Not Reportable 06/20/17 06:58 Neutrophils # (Manual) 6.1 10^3/uL (1.5-6.6) 06/20/17 06:58 Lymphocytes # (Manual) 1.8 10^3/uL (1.5-3.5) 06/20/17 06:58 Monocytes # (Manual) 1.5 10^3/uL (0.0-1.0) H 06/20/17 06:58 Eosinophils # (Manual) 0.1 10^3/uL (0-0.7) 06/20/17 06:58 Basophils # (Manual) 0.0 10^3/uL (0-0.1) 06/20/17 06:58 Differential Comment MANUAL DIFFERENTIAL 06/20/17 06:58 Manual Slide Review Indicated 06/19/17 10:30 Platelet Estimate NORMAL (130-450,000) (NORMAL) 06/20/17 06:58 Platelet Morphology 1+ GIANT PLATELETS (NORMAL) 2+ LARGE PLATELETS (NORMAL) 06/20/17 06:58 Platelet Morphology 1+ GIANT PLATELETS (NORMAL) 2+ LARGE PLATELETS (NORMAL) 06/20/17 06:58 RBC Morph Micro Appear 1+ POLYCHROMASIA (NORMAL) 2+ MACROCYTOSIS (NORMAL) 2+ SPHEROCYTES (NORMAL) 06/19/17 10:30 RBC Morph Micro Appear 1+ POLYCHROMASIA (NORMAL) 2+ MACROCYTOSIS (NORMAL) 2+ SPHEROCYTES (NORMAL) 06/19/17 10:30 RBC Morph Micro Appear 1+ POLYCHROMASIA (NORMAL) 2+ MACROCYTOSIS (NORMAL) 2+ SPHEROCYTES (NORMAL) 06/19/17 10:30 PT 17.4 secs (9.9-12.6) H 06/20/17 06:58 INR 1.6 (0.8-1.2) H 06/20/17 06:58 Sodium 132 mmol/L (135-145) L 06/20/17 06:58 Potassium 3.9 mmol/L (3.5-5.0) 06/20/17 06:58 Chloride 96 mmol/L (101-111) L 06/20/17 06:58 Carbon Dioxide 26 mmol/L (21-32) 06/20/17 06:58 Anion Gap 10.0 (6-13) 06/20/17 06:58 BUN 15 mg/dL (6-20) 06/20/17 06:58 Creatinine 0.8 mg/dL (0.6-1.2) 06/20/17 06:58 Estimated GFR (MDRD) 91 (>89) 06/20/17 06:58 Glucose 89 mg/dL (70-100) 06/20/17 06:58 Lactic Acid 1.7 mmol/L (0.5-2.2) 06/19/17 10:30 Calcium 8.2 mg/dL (8.5-10.3) L 06/20/17 06:58 Magnesium 1.7 mg/dL (1.7-2.8) 06/20/17 06:58 Total Bilirubin 0.8 mg/dL (0.2-1.0) 06/20/17 06:58 AST 25 IU/L (10-42) 06/20/17 06:58 ALT 15 IU/L (10-60) 06/20/17 06:58 Alkaline Phosphatase 71 IU/L (42-121) 06/20/17 06:58 Troponin I < 0.04 ng/mL (<0.49) 06/19/17 22:53 B-Natriuretic Peptide 924 pg/mL (5-100) H 06/20/17 06:58 Total Protein 6.1 g/dL (6.7-8.2) L 06/20/17 06:58 Albumin 3.1 g/dL (3.2-5.5) L 06/20/17 06:58 Globulin 3.0 g/dL (2.1-4.2) 06/20/17 06:58 Albumin/Globulin Ratio 1.0 (1.0-2.2) 06/20/17 06:58 Influenza A (Rapid) Negative (Negative) 06/19/17 10:32 Influenza B (Rapid) Negative (Negative) 06/19/17 10:32 Influenza Types A,B Ag - 06/19/17 10:32 - DIAGNOSTIC IMAGING Diagnostic Imaging Results: Final report reviewed Diagnostic Imaging Results Comments: EXAM: [id number] [id number] ([id number]) EXAM: CHEST RADIOGRAPHY EXAM DATE: 06/19/2017 10:05 AM. CLINICAL HISTORY: Worsening pna. Cough. COMPARISON: 06/12/2017. TECHNIQUE: 2 views. FINDINGS: Lungs/Pleura: No focal opacities evident. Mild wispy airspace opacity seen before in the lateral right suprahilar region is resolved. There is no significant right basilar airspace opacity. No pleural effusion. No pneumothorax. Normal volumes. Mediastinum: Mild cardiomegaly, as before. Prior CABG. Pacemaker electrode at the right ventricular apex, as before. Other: None. IMPRESSION: 1. Lungs are clear. 2. Mild cardiomegaly, as before. Echocardiogram Impression: Left ventricular size is normal. Left ventricular wall thickness is normal. Overall left ventricular systolic function is mildly impaired with an ejection fraction of 45-50%. Diastology and subtle regional wall motion abnormalities are difficult to assess in the presence of arrhythmia. Left ventricular septal wall is flattened in diastole and systole which is consistent with right ventricular volume and pressure overload. Moderate right ventricular enlargement. The right ventricular systolic function is mildly impaired. Pacemaker leads seen in the right atrium and right ventricle Severe increase in left atrial volume index Severe right atrial enlargement The aortic valve is trileaflet. There is mild aortic valve sclerosis there is no evidence of aortic stenosis. Trace amount of aortic regurgitation. There is thickening of the mitral valve leaflets. No mitral stenosis noted. Mild mitral annular calcification. There is moderate mitral regurgitation. No tricuspid stenosis noted. Severe tricuspid regurgitation present. Severely abnormal right heart pressures. The right ventricular systolic pressure at rest is 80 mmHg. The pulmonic valve is normal. Mild to moderate pulmonic regurgitation. There is no pulmonic stenosis noted. There is trivial pericardial effusion present. The intra-atrial septum appears normal. The intra-atrial septum is intact on color flow imaging. Aortic root and ascending aorta are dilated measuring up to 4.0 cm. The inferior vena cava is dilated with less than 50% inspiratory collapse which is suggestive of right arterial pressure of at least 15 mmHg. No thrombus or mass identified Possible pleural effusion. - FOLLOW UP Follow Up: Patient was treated with Lasix in the hospital and had significant improvement in his symptoms. Patient was found to have new onset systolic heart failure with an ejection fraction of 45-50%. The patient also had significantly elevated right heart pressure with severe tricuspid regurgitation. The patient was discharged home with oral Lasix and will continue on metoprolol and lisinopril for optimal treatment of heart failure. The patient is to follow-up with his income tax return preparer in 2 weeks. Given his significantly elevated right heart pressures there is some concern for possible pulmonary etiology such as pulmonary fibrosis however the patient did improve with Lasix. In the future if patient's symptoms continue he may need to consider doing a CT of the lungs to look for interstitial lung disease, fibrosis or pulmonary emboli. - TIME SPENT Time Spent in Discharge (Minutes): 45
== END 2017-06-20 13:10 | disposition home or self-care (01) ==
LOC: ED 09:50 → OBS 14:35
PROVIDERS: ADMIT Internal Medicine; ATTEND Internal Medicine
DX: I11.0 Hypertensive heart disease with heart failure (principal); I50.21 Acute systolic (congestive) heart failure; I48.2 Chronic atrial fibrillation; D46.9 Myelodysplastic syndrome, unspecified; E78.5 Hyperlipidemia, unspecified; I08.1 Rheumatic disorders of both mitral and tricuspid valves; E87.1 Hypo-osmolality and hyponatremia; R19.5 Other fecal abnormalities; I25.10 Atherosclerotic heart disease of native coronary artery without angina pectoris; Z95.0 Presence of cardiac pacemaker; Z95.1 Presence of aortocoronary bypass graft; Z79.01 Long term (current) use of anticoagulants; Z87.01 Personal history of pneumonia (recurrent)
CPT/HCPCS: 36415; 71046; 80048; 80053; 83605; 83735; 83880; 84484; 85025; 85610; 87040; 87275; 87276; 93005; 93306; 96365; 96375; 96376; 99283; 99284; A9270; G0378

== ENCOUNTER 2017-08-12 11:44 | Outpatient (CLI) | payer MEDICARE, OTHER ==
[2017-08-12 12:08] LABS: ALBUMIN 4.2 g/dL (3.2-5.5); CALCIUM 8.8 mg/dL (8.5-10.3); CREATININE 1.3 mg/dL (0.6-1.2)
== END 2017-08-12 11:45 | disposition home or self-care (01) ==
LOC: LAB 11:44
PROVIDERS: ATTEND Internal Medicine Cardiovascular Disease
DX: I50.22 Chronic systolic (congestive) heart failure (principal); I48.2 Chronic atrial fibrillation
CPT/HCPCS: 36415; 80069; 83880

== ENCOUNTER 2017-08-14 10:28 | Outpatient (CLI) | payer MEDICARE, OTHER ==
[2017-08-14 11:03] LABS: CALCIUM 9.1 mg/dL (8.5-10.3); CREATININE 0.9 mg/dL (0.6-1.2)
== END 2017-08-14 10:29 | disposition home or self-care (01) ==
LOC: LAB 10:28
PROVIDERS: ATTEND Internal Medicine Cardiovascular Disease
DX: I50.22 Chronic systolic (congestive) heart failure (principal); I10 Essential (primary) hypertension
CPT/HCPCS: 36415; 80048; 83880

== ENCOUNTER 2017-08-19 11:50 | Outpatient (CLI) | payer MEDICARE, OTHER | END 2017-08-19 11:51 | disposition home or self-care (01) | LOC: LAB 11:50 | PROVIDERS: ATTEND Internal Medicine | DX: M25.519 Pain in unspecified shoulder (principal) | CPT/HCPCS: 36415; 84484; 85651; 86140 ==

== ENCOUNTER 2017-09-09 11:13 | Outpatient (CLI) | payer MEDICARE, OTHER | END 2017-09-09 11:14 | disposition home or self-care (01) | LOC: LAB 11:13 | PROVIDERS: ATTEND Internal Medicine | DX: M35.3 Polymyalgia rheumatica (principal) | CPT/HCPCS: 36415; 85651; 86140 ==

== ENCOUNTER 2017-10-01 10:06 | Outpatient (CLI) | payer MEDICARE, OTHER | END 2017-10-01 10:07 | disposition home or self-care (01) | LOC: LAB 10:06 | PROVIDERS: ATTEND Internal Medicine | DX: M35.3 Polymyalgia rheumatica (principal) | CPT/HCPCS: 85651; 86140 ==

== ENCOUNTER 2017-10-21 08:00 | Outpatient (CLI) | payer MEDICARE, OTHER | END 2017-10-21 08:01 | disposition home or self-care (01) | LOC: LAB.R 08:00 | PROVIDERS: ATTEND Internal Medicine | DX: M35.3 Polymyalgia rheumatica (principal) | CPT/HCPCS: 85651; 86140 ==

== ENCOUNTER 2017-11-12 10:03 | Outpatient (CLI) | payer MEDICARE, OTHER | END 2017-11-12 10:04 | disposition home or self-care (01) | LOC: LAB 10:03 | PROVIDERS: ATTEND Internal Medicine | DX: M35.3 Polymyalgia rheumatica (principal) | CPT/HCPCS: 36415; 85651; 86140 ==

== ENCOUNTER 2017-12-04 09:35 | Outpatient (CLI) | payer MEDICARE, OTHER | END 2017-12-04 09:36 | disposition home or self-care (01) | LOC: LAB.R 09:35 | PROVIDERS: ATTEND Internal Medicine | DX: M35.3 Polymyalgia rheumatica (principal) | CPT/HCPCS: 85651; 86140 ==

== ENCOUNTER 2017-12-24 10:20 | Outpatient (CLI) | payer MEDICARE, OTHER | END 2017-12-24 10:21 | disposition home or self-care (01) | LOC: LAB 10:20 | PROVIDERS: ATTEND Internal Medicine | DX: M35.3 Polymyalgia rheumatica (principal) | CPT/HCPCS: 36415; 85651; 86140 ==

== ENCOUNTER 2018-01-13 08:00 | Outpatient (CLI) | payer MEDICARE, OTHER ==
[2018-01-13 14:32] LABS: ALBUMIN 4.2 g/dL (3.2-5.5); ALBUMIN/GLOBULIN RATIO 1.6 (1.0-2.2); ALKALINE PHOSPHATASE 64 IU/L (42-121); ALT ALANINE AMINOTRANSFERASE 26 IU/L (10-60); AST ASPARTATE AMINOTRANSFERASE 25 IU/L (10-42); BUN - BLOOD UREA NITROGEN 20 mg/dL (6-20); CALCIUM 8.7 mg/dL (8.5-10.3); CARBON DIOXIDE - CO2 27 mmol/L (21-32); CHLORIDE 100 mmol/L (101-111); CHOLESTEROL 102 mg/dL; CREATININE 1.1 mg/dL (0.6-1.2); GFR - MDRD 63 (>89); GLUCOSE 88 mg/dL (70-100); HDL CHOLESTEROL 50 mg/dL; LDL CHOLESTEROL,CALCULATED 42 mg/dL; LDL/HDL RATIO 0.8 (<3.6); SODIUM 134 mmol/L (135-145); TOTAL PROTEIN 6.8 g/dL (6.7-8.2); VLDL CHOLESTEROL 10 mg/dL
[2018-01-13 14:36] LABS: CRP - C-REACTIVE PROTEIN < 1.0 mg/dL (0-1.0)
== END 2018-01-13 08:01 | disposition home or self-care (01) ==
LOC: LAB.R 08:00
PROVIDERS: ATTEND Internal Medicine
DX: I48.91 Unspecified atrial fibrillation (principal); E78.5 Hyperlipidemia, unspecified; M35.3 Polymyalgia rheumatica; Z79.899 Other long term (current) drug therapy
CPT/HCPCS: 80053; 80061; 83721; 85651; 86140

== ENCOUNTER 2018-02-18 09:47 | Outpatient (CLI) | payer MEDICARE, OTHER | END 2018-02-18 09:48 | disposition home or self-care (01) | LOC: LAB 09:47 | PROVIDERS: ATTEND Internal Medicine | DX: M35.3 Polymyalgia rheumatica (principal) | CPT/HCPCS: 36415; 85651; 86140 ==

== ENCOUNTER 2018-03-18 10:04 | Outpatient (CLI) | payer MEDICARE, OTHER | END 2018-03-18 10:05 | disposition home or self-care (01) | LOC: LAB 10:04 | PROVIDERS: ATTEND Internal Medicine | DX: M35.3 Polymyalgia rheumatica (principal) | CPT/HCPCS: 36415; 85651; 86140 ==

== ENCOUNTER 2018-05-06 10:21 | Outpatient (CLI) | payer MEDICARE, OTHER | END 2018-05-06 10:22 | disposition home or self-care (01) | LOC: LAB 10:21 | PROVIDERS: ATTEND Internal Medicine | DX: M35.3 Polymyalgia rheumatica (principal) | CPT/HCPCS: 85651; 86140 ==

== ENCOUNTER 2018-05-27 09:40 | Outpatient (CLI) | payer MEDICARE, OTHER | END 2018-05-27 23:59 | disposition home or self-care (01) | LOC: LAB.R 09:40 | PROVIDERS: ATTEND Internal Medicine | DX: I50.9 Heart failure, unspecified (principal) | CPT/HCPCS: 83880 ==

== ENCOUNTER 2018-06-24 15:08 | Outpatient (CLI) | payer MEDICARE, OTHER ==
[2018-06-24 15:43] LABS: CALCIUM 8.6 mg/dL (8.5-10.3); CREATININE 0.7 mg/dL (0.6-1.2)
== END 2018-06-24 15:09 | disposition home or self-care (01) ==
LOC: LAB 15:08
PROVIDERS: ATTEND Internal Medicine Cardiovascular Disease
DX: I50.22 Chronic systolic (congestive) heart failure (principal)
CPT/HCPCS: 36415; 80048; 83880

== ENCOUNTER 2018-06-27 10:07 | Outpatient (CLI) | payer MEDICARE, OTHER ==
--- NOTE | 2018-06-27 13:38 | XRAY Report ---
Reason: LUMBAR DISC HERNIATION WITH RADICULOPATHY Procedure Date: 06/27/2018 Accession Number: [id number] / [id number] Procedure: XR - Lumbar Spine Complete CPT Code: FULL RESULT: EXAM: LUMBOSACRAL SPINE RADIOGRAPHY EXAM DATE: 06/27/2018 10:13 AM. CLINICAL HISTORY: Lumbar disk herniation with radiculopathy. COMPARISONS: None. TECHNIQUE: 5 views. FINDINGS: Alignment: 3 mm of anterolisthesis of L4 on L5. No scoliosis. Bones: Five [id number] lumbar vertebral bodies are present. The bones are qualitatively osteopenic; this limits evaluation for underlying fractures or masses. Mild compression of L2 and L1 both less than 30% loss of height. Within limitations of the osteopenia, there is osseous patency of the neural foramina. Disks: Disk space heights are mostly preserved. Facets: Marked multilevel facet arthropathy, at least moderate in the lower lumbar spinal levels. Sacroiliac Joints: Unremarkable. Soft Tissues: Atherosclerotic abdominal aorta. Surgical clips in the abdomen. IMPRESSION: Osteopenia and advanced degenerative changes as described. Mild compression with loss of vertebral body height at L1 and L2. RADIA
== END 2018-06-27 10:08 | disposition home or self-care (01) ==
LOC: DI 10:07
PROVIDERS: ATTEND Family Medicine
DX: M51.16 Intervertebral disc disorders with radiculopathy, lumbar region (principal); M47.27 Other spondylosis with radiculopathy, lumbosacral region; M85.88 Other specified disorders of bone density and structure, other site; I70.0 Atherosclerosis of aorta
CPT/HCPCS: 72110

== ENCOUNTER 2018-07-01 11:20 | Outpatient (CLI) | payer MEDICARE, OTHER ==
[2018-07-01 11:43] LABS: CALCIUM 8.8 mg/dL (8.5-10.3); CREATININE 0.9 mg/dL (0.6-1.2)
== END 2018-07-01 11:21 | disposition home or self-care (01) ==
LOC: LAB 11:20
PROVIDERS: ATTEND Physician Assistant
DX: I25.5 Ischemic cardiomyopathy (principal)
CPT/HCPCS: 36415; 80048

== ENCOUNTER 2018-09-09 09:25 | Outpatient (CLI) | payer MEDICARE, OTHER ==
[2018-09-09 10:22] LABS: ALT ALANINE AMINOTRANSFERASE 23 IU/L (10-60); AST ASPARTATE AMINOTRANSFERASE 28 IU/L (10-42); CHOL/HDL RATIO 1.9 (<5.0); CHOLESTEROL 91 mg/dL; CK- CREATINE KINASE 47 IU/L (22-269); HDL CHOLESTEROL 47 mg/dL; LDL CHOLESTEROL,DIRECT 38 mg/dL
== END 2018-09-09 09:26 | disposition home or self-care (01) ==
LOC: LAB 09:25
PROVIDERS: ATTEND Internal Medicine Cardiovascular Disease
DX: I25.10 Atherosclerotic heart disease of native coronary artery without angina pectoris (principal); E78.5 Hyperlipidemia, unspecified
CPT/HCPCS: 80061; 82550; 83721; 84450; 84460

== ENCOUNTER 2018-09-19 07:52 | Day surgery (SDC) | payer MEDICARE, OTHER ==
[~2018-09-19 07:52] MED LIST: CEFAZOLIN SODIUM IN 0.9 % NACL 2 GM/100 ML BAG IV ONE
[2018-09-19] MEDS ORDERED: LACTATED RINGERS 1,000 ML IV ONE ×2 (07:54→10:52)
--- NOTE | 2018-09-19 09:21 | ANESTHESIA ---
Pre-Anesthesia VS, & Labs - Diagnosis right inguinal hernia - Procedure Right inguinal hernia repair Vital Signs: Temp Pulse Resp BP Pulse Ox 36.5 C 60 16 135/75 H 100 09/19/18 07:54 09/19/18 07:54 09/19/18 07:54 09/19/18 07:54 09/19/18 07:54 Height 5 ft 9 in Weight (kg) 67.1 kg Body Mass Index 22.1 - NPO >8 hours - Lab Results Lab results reviewed: Yes Home Medications and Allergies Atorvastatin Calcium 40 mg PO DAILY 12/23/12 Dabigatran Etexilate Mesylate [Pradaxa] 150 mg PO BID 12/23/12 Fish Oil Liquid 1 tsp PO DAILY 12/23/12 Multivitamin [Multivitamins] 1 each PO DAILY 12/23/12 Lisinopril [Zestril] 10 mg PO DAILY 06/19/17 Metoprolol Succinate [Toprol Xl] 100 mg PO BID 06/19/17 Elemental Iron 64 tab ORAL DAILY 01/21/18 predniSONE [Prednisone] 10 mg PO DAILY 09/02/18 Allergies/Adverse Reactions: Allergies Allergy/AdvReac Type Severity Reaction Status Date / Time Penicillins Allergy Edema Verified 09/02/18 11:09 Sulfa (Sulfonamide Allergy Rash Verified 09/02/18 11:09 Antibiotics) Anes History & Medical History - Anesthetic History Anesthesia Complications: reports: No previous complications Family history of Anesthesia Complications: Denies Family history of Malignant Hyperthermia: Denies - Medical History Cardiovascular: reports: Hypertension, High cholesterol, Coronary artery disease, Atrial fibrillation Pulmonary: reports: Pneumonia Gastrointestinal: reports: GERD, Hemorrhoids, Diverticulitis Urinary: reports: None, Benign prostate hypertrophy Neuro: reports: None Musculoskeletal: reports: None Endocrine/Autoimmune: reports: None Blood Disorders: reports: None Skin: reports: Rosacea Smoking Status: Never smoker Psychosocial: reports: No issues indicated - Surgical History General: Cholecystectomy, Appendectomy, Bowel surgery Eyes Ears Nose Throat (EENT): Tonsil/Adenoidectomy Cardiothoracic: CABG, Pacemaker Exam General: Alert Dental: WNL Mouth Opening: Greater than 4 Fingerbreadths Neck Mobility: Normal Mallampati classification: II Thyromental Distance: greater than 6 cm Respiratory: Lungs clear Cardiovascular: Regular rate Mental/Cognitive Status: Alert/Oriented X3 Plan Anesthesia Type: General Consent for Procedure(s) Verified and Reviewed: Yes Code Status: Attempt Resuscitation ASA classification: 3-Severe systemic disease Is this case an emergency?: No
[2018-09-19] MEDS ORDERED: DEXAMETHASONE 4 MG/ML VIAL IVP ONE (09:49)
[2018-09-19] MEDS ORDERED: fentaNYL 100 MCG/2 ML VIAL IVP ONE (09:49)
[2018-09-19] MEDS ORDERED: PROPOFOL 200 MG/20 ML VIAL IVP ONE (09:49)
[2018-09-19] MEDS ORDERED: ePHEDrine 50 MG/ML VIAL IVP ONE (09:49)
[2018-09-19] MEDS ORDERED: LIDOCAINE-MPF 2% 5 ML VIAL IM ONE (09:49)
[2018-09-19] MEDS ORDERED: ONDANSETRON 4 MG/2 ML VIAL IVP ONE (09:49)
[2018-09-19] MEDS ORDERED: BUPIVACAINE 0.5%-EPI 1:200000 PF 30 ML VIAL SUBQ ONE (10:05)
[2018-09-19] MEDS ORDERED: HYDROmorphone 0.5 MG/0.5 ML SYRINGE IVP PRN (10:56)
[2018-09-19] MEDS ORDERED: HYDROcod/ACETAM 5/325 MG TABLET PO PRN (10:56)
[2018-09-19] MEDS ORDERED: ONDANSETRON 4 MG/2 ML VIAL IVP PRN (10:56)
--- NOTE | 2018-09-19 11:06 | OPERATIVE REPORT ---
Operative Report - General Procedure Date: 09/19/18 Planned Procedure: Recurrent right inguinal herniorrhaphy Pre-Op Diagnosis: Recurrent right inguinal hernia Procedure Performed: Recurrent indirect right inguinal herniorrhaphy with mesh and excision of right cord lipoma Post Op Diagnosis: Same - Procedure Note Primary Surgeon: Elpidio Ulrich MD Anesthesia Provider: Lucian Moses CRNA Anesthesia Technique: General LMA, Local (30 mL of half percent Marcaine) IV Fluids (mL): 1,000 Estimated Blood Loss (mL): 5 Drain/Tube Type: Other (None) Complications: None - Other Other Information/Narrative: OPERATIVE DESCRIPTION/REPORT: After verbal and written informed consent was obtained detailing the risks of infection, bleeding requiring transfusion with its risks, nerve injury, and de ath, and after I met with the patient confirming the surgery and the site of the surgery and after initialing the site of the surgery with a surgical marker, the patient was brought to the operative suite and placed supine on the operating table. Great care was taken to avoid pressure points to prevent pressure necrosis or nerve injury. Monitoring devices were applied along with TEDs and pneumatic compressive stockings (to prevent DVT). The patient received preoperative antibiotics for surgical prophylaxis. Lucian Moses CRNA sedated and anesthetized the patient for the entire procedure. The patient was prepped and draped in the usual sterile manner. With the patient draped my initials were clearly visible. A "time in" then confirmed that the patient was identified with 3 identifiers (name, date and medical record number), the history and physical was in the chart, the signed consent confirming the procedure was in the chart, the patient was in the correct position, the a forementioned prophylactic measures were in place or given, we had the correct personnel and equipment to complete the procedure and that anesthesia, surgery and nursing were given an opportunity to express any concerns. With the agreement of everyone in the room, we proceeded with the operation. A standard inguinal incision was made tracing two thirds of the previous incision and dissection was carried down to the external oblique aponeurosis using a combination of Metzenbaum scissors and Bovie electrocautery. The external oblique aponeurosis was cleared of overlying adherent tissue, and the external ring was delineated. The external oblique was the incised with a scalpel and this incision was carried out to the external ring using Metzenbaum scissors. The external oblique was thickened consistent with a previous operation. Having exposed the inguinal canal, the cord structures were from the canal using blunt dissection. Adherent cremasteric muscle was dissected free from the cord using Bovie electrocautery. The cord was then explored using a combination of sharp and blunt dissection, and the sac was found anteromedially to the cord structures. Dissection along the cord structures found a lipoma that was dissected back to the internal ring, ligated with a 3-0 Vicryl, transected, the stump cauterized and allowed to retract back into the abdomen. The sac was dissected free from the cord structures using a combination of blunt dissection and Bovie electrocautery. Once preperitoneal fat was encountered, the dissection stopped and the sac was high ligated with a 2-0 PDS, transected, the stump cauterized and allowed to retract back into the abdominal cavity and a medium Covidien plug (Ref# [id number], Lot# [id number], use date 2023-01-29) inserted into the internal ring. The plug was secured to the internal ring by interrupted 2-0 PDS sutures. The Covidien enlay patch was then placed on the floor of the inguinal canal and secured in place using interrupted 0 PDS sutures to the conjoined tendon superiorly, pubic tubercle medially, and shelving edge inferiorly. By reinforcing the floor with the enlay patch, a new internal ring was thus formed. The wound was then irrigated using sterile saline, and hemostasis was obtained using Bovie electrocautery. The incision in the external oblique was approximated using a 3-0 Vicryl in a running fashion, thus reforming the external ring. 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 Tony's fascia was approximated using an interrupted 4-0 Monocryl simple suture. The skin incision was approximated with 4-0 Monocryl in a subcuticular fashion. The skin was cleaned of its prep and Dermabond was applied. At this point a time out was performed that confirmed that all the counts were correct, the procedure that was performed, the blood loss, the IV fluids administered, and the patients condition. A dressing was then applied. Gentle downward traction ensured that the testes were well seated in the scrotum. Having tolerated the procedure well, the patient was taken to short stay in good and stable condition. Dragon disclaimer: This document was created in part using voice recognition technology. Because of the inherent limitations of the system ([employer] user manual states that the licensee understands that speech recognition is a statistical process and that recognition errors are inherent in the process), occasional same sounding word substitutions and grammatical errors do occur and persist despite proofreading. Please read this document for context.
[2018-09-19] MEDS ORDERED: HYDROcod/ACETAM 5/325 MG TABLET ONE (12:02)
[2018-09-19 12:34] VITALS: BP 135/68
== END 2018-09-19 07:53 | disposition home or self-care (01) ==
LOC: SDS 07:52
PROVIDERS: ATTEND Surgery
PROC: 0VBF0ZZ Excision of Right Spermatic Cord, Open Approach (ICD-10-PCS; 2018-09-19)
PROC: 0YU50JZ Supplement Right Inguinal Region with Synthetic Substitute, Open Approach (ICD-10-PCS; principal; 2018-09-19 09:00)
DX: K40.91 Unilateral inguinal hernia, without obstruction or gangrene, recurrent (principal); D17.6 Benign lipomatous neoplasm of spermatic cord; I11.0 Hypertensive heart disease with heart failure; I50.20 Unspecified systolic (congestive) heart failure; E78.5 Hyperlipidemia, unspecified; I25.10 Atherosclerotic heart disease of native coronary artery without angina pectoris; I48.91 Unspecified atrial fibrillation; Z87.01 Personal history of pneumonia (recurrent); K21.9 Gastro-esophageal reflux disease without esophagitis; N40.0 Benign prostatic hyperplasia without lower urinary tract symptoms; Z79.52 Long term (current) use of systemic steroids; Z79.01 Long term (current) use of anticoagulants; Z95.1 Presence of aortocoronary bypass graft; Z95.0 Presence of cardiac pacemaker; Z90.49 Acquired absence of other specified parts of digestive tract
CPT/HCPCS: 49520; A9270; C1781; J0690; J7120

== ENCOUNTER 2019-02-17 13:41 | Outpatient (CLI) | payer MEDICARE, OTHER ==
[2019-02-17 14:13] LABS: CRP - C-REACTIVE PROTEIN 3.4 mg/dL (0-1.0)
[2019-02-17 14:14] LABS: URIC ACID 5.5 mg/dL (2.6-7.2)
== END 2019-02-17 13:42 | disposition home or self-care (01) ==
LOC: LAB 13:41
PROVIDERS: ATTEND Nurse Practitioner
DX: M25.50 Pain in unspecified joint (principal); I50.9 Heart failure, unspecified; M35.3 Polymyalgia rheumatica
CPT/HCPCS: 80053; 84550; 85027; 85651; 86140

== ENCOUNTER 2019-03-10 09:40 | Outpatient (CLI) | payer MEDICARE, OTHER ==
[2019-03-10 10:30] LABS: CHOL/HDL RATIO 1.9 (<5.0); CHOLESTEROL 99 mg/dL; HDL CHOLESTEROL 53 mg/dL; LDL CHOLESTEROL,CALCULATED 37 mg/dL; LDL/HDL RATIO 0.7 (<3.6); VLDL CHOLESTEROL 9 mg/dL
[2019-03-10 10:32] LABS: CRP - C-REACTIVE PROTEIN < 1.0 mg/dL (0-1.0)
== END 2019-03-10 09:41 | disposition home or self-care (01) ==
LOC: LAB 09:40
PROVIDERS: ATTEND Family Medicine
DX: I48.91 Unspecified atrial fibrillation (principal)
CPT/HCPCS: 36415; 80061; 83721; 85651; 86140

== ENCOUNTER 2019-05-11 10:23 | Outpatient (CLI) | payer MEDICARE, OTHER | END 2019-05-11 10:24 | disposition home or self-care (01) | LOC: DI 10:23 | PROVIDERS: ATTEND Internal Medicine Cardiovascular Disease | DX: I08.1 Rheumatic disorders of both mitral and tricuspid valves (principal); Z95.0 Presence of cardiac pacemaker | CPT/HCPCS: 93306 ==

== ENCOUNTER 2019-06-30 09:55 | Outpatient (CLI) | payer MEDICARE, OTHER ==
[2019-06-30 10:41] LABS: ALBUMIN/GLOBULIN RATIO 1.4 (1.0-2.2); ALKALINE PHOSPHATASE 68 IU/L (42-121); ALT ALANINE AMINOTRANSFERASE 26 IU/L (10-60); AST ASPARTATE AMINOTRANSFERASE 26 IU/L (10-42); BILIRUBIN,TOTAL 1.3 mg/dL (0.2-1.0); BUN - BLOOD UREA NITROGEN 21 mg/dL (6-20); CALCIUM 8.7 mg/dL (8.5-10.3); CARBON DIOXIDE - CO2 26 mmol/L (21-32); CHLORIDE 101 mmol/L (101-111); CHOL/HDL RATIO 2.2 (<5.0); CHOLESTEROL 82 mg/dL; CK- CREATINE KINASE 32 IU/L (22-269); CREATININE 0.9 mg/dL (0.6-1.2); GLUCOSE 105 mg/dL (70-100); HDL CHOLESTEROL 38 mg/dL; LDL CHOLESTEROL,CALCULATED 35 mg/dL; LDL/HDL RATIO 0.9 (<3.6); SODIUM 134 mmol/L (135-145); TOTAL PROTEIN 6.8 g/dL (6.7-8.2); VLDL CHOLESTEROL 9 mg/dL
[2019-06-30 10:42] LABS: CRP - C-REACTIVE PROTEIN < 1.0 mg/dL (0-1.0)
== END 2019-06-30 09:56 | disposition home or self-care (01) ==
LOC: LAB 09:55
PROVIDERS: ATTEND Internal Medicine Cardiovascular Disease
DX: I11.0 Hypertensive heart disease with heart failure (principal); R09.89 Other specified symptoms and signs involving the circulatory and respiratory systems; I25.10 Atherosclerotic heart disease of native coronary artery without angina pectoris; I50.22 Chronic systolic (congestive) heart failure; E78.5 Hyperlipidemia, unspecified; M35.3 Polymyalgia rheumatica
CPT/HCPCS: 80053; 80061; 82550; 83721; 85651; 86140

== ENCOUNTER 2019-07-28 11:59 | Outpatient (CLI) | payer MEDICARE, OTHER | END 2019-07-28 12:00 | disposition home or self-care (01) | LOC: LAB 11:59 | PROVIDERS: ATTEND Nurse Practitioner | DX: M35.3 Polymyalgia rheumatica (principal) | CPT/HCPCS: 36415; 85651; 86140 ==

== ENCOUNTER 2019-08-11 12:02 | Outpatient (CLI) | payer MEDICARE, OTHER ==
[2019-08-11 12:30] LABS: ALBUMIN 3.8 g/dL (3.2-5.5); CALCIUM 8.5 mg/dL (8.5-10.3); CREATININE 0.9 mg/dL (0.6-1.2); PHOSPHORUS 4.4 mg/dL (2.5-4.6)
== END 2019-08-11 12:03 | disposition home or self-care (01) ==
LOC: LAB 12:02
PROVIDERS: ATTEND Internal Medicine Cardiovascular Disease
DX: I50.22 Chronic systolic (congestive) heart failure (principal)
CPT/HCPCS: 36415; 80069; 83880

== ENCOUNTER 2019-08-18 12:24 | Outpatient (CLI) | payer MEDICARE, OTHER ==
[2019-08-18 12:52] LABS: ALBUMIN 3.5 g/dL (3.2-5.5); CALCIUM 8.5 mg/dL (8.5-10.3); CREATININE 0.9 mg/dL (0.6-1.2); PHOSPHORUS 4.4 mg/dL (2.5-4.6)
== END 2019-08-18 12:25 | disposition home or self-care (01) ==
LOC: LAB 12:24
PROVIDERS: ATTEND Internal Medicine Cardiovascular Disease
DX: I11.0 Hypertensive heart disease with heart failure (principal); I50.22 Chronic systolic (congestive) heart failure
CPT/HCPCS: 36415; 80069; 83880

== ENCOUNTER 2019-10-16 09:30 | Outpatient (CLI) | payer MEDICARE, OTHER ==
[2019-10-16 09:58] LABS: CALCIUM 8.5 mg/dL (8.5-10.3); CREATININE 1.1 mg/dL (0.6-1.2)
== END 2019-10-16 09:31 | disposition home or self-care (01) ==
LOC: LAB 09:30
PROVIDERS: ATTEND Internal Medicine Cardiovascular Disease
DX: I50.22 Chronic systolic (congestive) heart failure (principal)
CPT/HCPCS: 36415; 80048; 83880

== ENCOUNTER 2019-10-27 10:50 | Outpatient (CLI) | payer MEDICARE, OTHER ==
[2019-10-27 11:44] LABS: CALCIUM 8.5 mg/dL (8.5-10.3)
== END 2019-10-27 10:51 | disposition home or self-care (01) ==
LOC: LAB 10:50
PROVIDERS: ATTEND Internal Medicine Cardiovascular Disease
DX: I50.22 Chronic systolic (congestive) heart failure (principal)
CPT/HCPCS: 36415; 80048; 83880

== ENCOUNTER 2019-11-16 12:26 | Outpatient (CLI) | payer MEDICARE, OTHER ==
[2019-11-16 12:54] LABS: CALCIUM 8.3 mg/dL (8.5-10.3); CREATININE 1.1 mg/dL (0.6-1.2)
== END 2019-11-16 12:27 | disposition home or self-care (01) ==
LOC: LAB 12:26
PROVIDERS: ATTEND Internal Medicine Cardiovascular Disease
DX: I50.32 Chronic diastolic (congestive) heart failure (principal)
CPT/HCPCS: 36415; 80048; 83880

== ENCOUNTER 2020-01-12 10:56 | Outpatient (CLI) | payer MEDICARE, OTHER | END 2020-01-12 10:57 | disposition home or self-care (01) | LOC: NS 10:56 | PROVIDERS: ATTEND Internal Medicine Hematology & Oncology | DX: R63.4 Abnormal weight loss (principal); D64.1 Secondary sideroblastic anemia due to disease ==

== ENCOUNTER 2020-01-18 12:00 | Outpatient (CLI) | payer MEDICARE, OTHER ==
--- NOTE | 2020-01-18 16:59 | CONSULTATION NOTE ---
Palliative Care Consultation - Referral Referring Provider: Dr. Daugherty Time of Visit: Referral setting: Home Referral Reason: MDS/CAD/CHF/anorexia/insomina - Information Sources Records reviewed: RN notes reviewed, Previous records reviewed History/Review of Systems obtained from: Patient Exam limitations: No limitations - History of Present Illness Brief History of Present Illness: This is a mustapha 89-year-old gentleman who has myelodysplastic syndrome, with severe anemia, previously on Revlimid since 10/19 since 2019 with vast improvement of his anemia. He is very pleased, he had previously received a few transfusions with last transfusion 11/20/2019. He has had improvement as far as his energy, though remains quite fatigued and limited in his activity status compared to his baseline. His understanding is he may have 1 to 3 years, he feels currently his quality of life is acceptable, and given he is almost 89, is willing to be accepting of this. Patient also has known CAD with new diagnosis of congestive heart failure and atrial fib. He reports he had increased swelling, breathlessness which was difficult to attribute either to the CHF or MDS, but this is improved overall. He has had his medications adjusted, and is doing fairly well. Patient's most pressing symptoms have been his fatigue, he does feel this is improving though with improving counts. He does have anorexia, reports he is not very interested in food, has added Ensure, and concerned about his weight loss. 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 His sons to come and help him with major projects, but he remains quite busy overall. Patient's other quality of life issue is his insomnia, does have difficulty getting to sleep, and up frequently through the night, he does trying get up even if he is not slept well, and does take a nap in the middle the day. He had actually pursued palliative care consultation at the request of his family, though he does not present with high symptom burden, he would benefit from the support, as well as ongoing conversations and support for advance care planning. Medical/Surgical History - Past Medical History Cardiovascular: reports: Congestive heart failure (new dx), Hypertension, High cholesterol, Coronary artery disease, Atrial fibrillation Respiratory: reports: Shortness of breath Neuro: None Endocrine/Autoimmune: reports: None GI: reports: GERD : reports: Benign prostate hypertrophy HEENT: reports: Chronic hearing loss Musculoskeletal: reports: Osteoarthritis, Fatigue, Other (PMR off prednisone) Derm: reports: Rosacea MRSA Hx?: No - Past Surgical History General: reports: Cholecystectomy, Appendectomy, Bowel surgery Cardiovascular: reports: CABG, Pacemaker (replaced x1) HEENT: reports: Tonsil/Adenoidectomy - Substance History Use: Uses substance without health or social issues: Alcohol (one drink daily avg) Social History - Living Situation Living arrangement: At home Living Situation: Alone Support System: Patient is a , his about a year and a half ago, of dementia with hospice. He does have 2 sons 1 in [place] and one in [facility]. They are quite attentive, they do come up and help him with projects, and both have recently been here. 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 Patient does perceive himself as a Church, is connected to [employer], is able to watch things on line, though they are having live services, does not feel that this would be appropriate given the are not taking distancing precautions. Family History - Family History Family History: Mother: (both of old age), Father: , Brother: Alive and Well Medications/Allergies - Medications Home Medications: Ambulatory Orders Medication Instructions Recorded Confirmed Atorvastatin Calcium 40 mg PO DAILY 12/23/12 01/19/20 Dabigatran Etexilate Mesylate 150 mg PO BID 12/23/12 01/19/20 [Pradaxa] Fish Oil Liquid 1 tsp PO DAILY 12/23/12 01/19/20 Multivitamin [Multivitamins] 1 each PO DAILY 12/23/12 01/19/20 Lisinopril [Zestril] 2.5 mg PO DAILY 06/19/17 01/19/20 Metoprolol Succinate [Toprol Xl] 12.5 mg PO DAILY 06/19/17 01/19/20 Elemental Iron 64 tab ORAL DAILY 01/21/18 01/19/20 Lenalidomide [Revlimid] 10 mg PO DAILY 10/06/19 01/19/20 Cholecalciferol [Vitamin D3] 5,000 mcg PO DAILY 10/20/19 01/19/20 Mecobalamin [B12 Active] 1,000 mcg PO DAILY 10/20/19 01/19/20 Torsemide 15 mg PO DAILY 10/20/19 01/19/20 Spironolactone 25 mg PO DAILY 11/20/19 01/19/20 Mirtazapine 7.5 mg PO DAILY 01/19/20 01/19/20 Tumeric 1,000 mg PO DAILY 01/19/20 - Allergies Allergies/Adverse Reactions: Allergies Allergy/AdvReac Type Severity Reaction Status Date / Time Penicillins Allergy Edema Verified 12/22/19 08:54 Sulfa (Sulfonamide Allergy Rash Verified 12/22/19 08:54 Antibiotics) Review of Systems - Constitutional Constitutional: reports: Fatigue (most persistent symptom; better lately with counts improved), Weakness, Poor appetite, Weight loss (131 (down from 135)) - Eyes Eyes: reports: Vision loss, Corrective lenses - Ears, Nose & Throat Ears, Nose & Throat: reports: Hearing loss, Dry mouth - Cardiovascular Cardiovascular: reports: Irregular heart rate, Decr. exercise tolerance. denies: Palpitations, Chest pain, Edema (resolved) - Respiratory Respiratory: reports: SOB with exertion. denies: Cough, SOB at rest - Gastrointestinal Gastrointestinal: reports: Poor appetite, Early satiety, Other (has initiated Ensure). denies: Nausea - Genitourinary Genitourinary: reports: Frequency - Musculoskeletal Musculoskeletal: reports: Stiffness, Muscle weakness - Integumentary Integumentary: reports: Rash (with initiation of Revlamid; still residual upper thighs), Dryness - Neurological Neurological: reports: General weakness. denies: Dizziness - Psychiatric Psychiatric: reports: Depression (mild). denies: Anxiety - Endocrine Endocrine: reports: Intolerance to cold - Hematologic/Lymphatic Hematologic/Lymphatic: reports: Anemia (9.1 today; improved and encouraged). denies: Recurrent infections - All Other Systems All Other Systems: reports: Reviewed and negative Physical Exam - Vital Signs Temperature: 96.8 C Pulse Rate: 60 Respiratory Rate: 18 O2 Saturation: 99 (ra @ rest) Blood Pressure: 118/72 - Physical Exam General Appearance: positive: No acute distress, Alert Eyes Bilateral: positive: Normal inspection ENT: positive: No signs of dehydration Cardiovascular: positive: Irregularly irregular Respiratory: positive: No respiratory distress, Breath sounds nml Abdomen: positive: Soft, Nml bowel sounds Skin: positive: Pallor, Dryness Extremities: positive: No pedal edema Neurologic/Psychiatric: positive: Oriented x3, Mood/affect nml, Weakness Palliative Care - POLST Patient has POLST: Yes POLST Status: DNR, Selective Treatment (completed at visit) Pain: Pain unchanged, Location (generalized achiness; 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 He is able to get up and down stairs, he has a fairly large house. 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 He himself though does still do quite a few of his projects, just paces himself. - Palliative Care Discussion: Patient does understand the seriousness of his illness, he did ask the oncologist how much time he has, his understanding was 1 to 3 years, he also understands he has other significant comorbidities particularly with recent exacerbation and new diagnosis of CHF. He does feel overall his quality of life is quite good. He reports he does have all his affairs in order, he has had experience with hospice as they did provide support and care for his end-of-life, reports there "family was very impressed" and states that for himself as well. 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 He feels currently this is still manageable and would like actually to consider transitioning in an end-of-life event in his current home setting. He feels he is taking care of his end-of-life planning, with the trust, plans, and has gotten plots at [place] [facility] paid his . He has been on [facility] for over 32 years, built his own property and house, he is troubled quite a lot, and is well beloved by the community.He does have DPOA for healthcare, with both boys sharing equally, he will get me a copy to be able to put in the medical record. He also given lives alone and concern regarding an untoward outcome, we did complete the POLST as a do not resuscitation/allow natural and selective treatment with the goal of treating medical conditions and avoiding burdensome measures. He would not want to be intubated nor have tube feedings but would be willing to receive supportive care treat reversible conditions. Results - Lab Results Lab results reviewed: Yes Lab and Imaging Results: WBC 4.8, hemoglobin 9.8, hematocrit 28.8, platelets 145,000. Impression and Recommendations - Palliative Care Impression: This is a mustapha 89-year-old gentleman who has myelodysplastic syndrome, currently responding to Revlimid 10 mg daily. He still has some persistent fatigue, has had some weight loss, and presents with anorexia and insomnia. He does not present with any persistent symptoms of depression or anxiety, he does have some loneliness given his current situation, but has good family support. Palliative care to continue to follow for symptom management and anticipatory guidance. Recommendations/Counseling Done: 1. Anorexia. This is multifactorial, certainly could be impacted by his Revlimid, and has resulted in weight loss. His primary provider had recommended and prescribe mirtazipine, he had read the insert and didn't start. We discussed it is hard to interpret that the medication is often used for anorexia or appetite, but also is very good for sleep, and can assist with depression as it is an atypical antidepressant. Given his concern for side effects, recommended that we start at a half a tab, for a week and see how he responds, he was willing to give this a try particularly around the context of his insomnia. Patient is trying to integrate Ensure, has met with dietitian, counseling provided regarding other strategies to increase caloric intake. We also discussed how difficult it is to gain weight, and that goal would be no further weight loss at this point. Patient is quite active, and though his calorie count is probably around [id number], does not leave a lot for weight gain. 2. Insomnia. Patient has difficulty falling asleep, as well as staying to sleep, he wakes up several times a night. Reinforced sleep hygiene getting up on a regular time and going to bed at a regular schedule. He does take a daily nap, though this does not seem prolonged or should interfere in his sleep. Will evaluate how he does on the mirtazapine, before trying other interventions. 3. Advanced care planning. Patient is quite pragmatic, does understand with advanced age and his multiple comorbidities, his risk for decline or sequela of an event. Counseling provided regarding patient's end-of-life wishes, would like to be at home with hospice, we discussed the continuum of care, and the role of palliative care in his current trajectory. Counseling provided regarding advance care planning, POLST completed and will obtain DPOA for patient's records. Instructed how to reach out in signs or symptoms to contact palliative care. Will call next week, follow-up on mirtazapine, and schedule visit afterwards. Patient in agreement. Time Spent: 90 minutes with greater than 50% of this time in counseling regarding the continuum of care, patient's current understanding of his disease and trajectory, concerns and fears, as well as setting up rapport with palliative care.
== END 2020-01-18 12:01 | disposition home or self-care (01) ==
LOC: PC 12:00
PROVIDERS: ATTEND Nurse Practitioner Adult Health
DX: Z51.5 Encounter for palliative care (principal); R63.0 Anorexia; R63.4 Abnormal weight loss; G47.00 Insomnia, unspecified; D46.9 Myelodysplastic syndrome, unspecified; I25.810 Atherosclerosis of coronary artery bypass graft(s) without angina pectoris; I11.0 Hypertensive heart disease with heart failure; I50.9 Heart failure, unspecified; I48.91 Unspecified atrial fibrillation; N40.0 Benign prostatic hyperplasia without lower urinary tract symptoms; Z95.0 Presence of cardiac pacemaker; Z79.899 Other long term (current) drug therapy; Z66 Do not resuscitate
CPT/HCPCS: 99345

== ENCOUNTER 2020-02-10 10:30 | Outpatient (CLI) | payer MEDICARE, OTHER ==
--- NOTE | 2020-02-10 16:15 | CONSULTATION NOTE ---
Palliative Care Follow Up - Referral Referring Provider: Dr. Daugherty Time of Visit: [id number] Referral setting: Home Referral Reason: MDS/CAD/CHF/Anorexia/Insomnia - Information Sources Records reviewed: Previous records reviewed History/Review of Systems obtained from: Patient Exam limitations: No limitations - History of Present Illness Update Brief HPI Update: This is a mustapha 89-year-old gentleman with myelodysplastic syndrome, with severe anemia, currently on Revlimid with improvement of his anemia. He is very pleased, yesterday his hemoglobin was 9.7. His last transfusion was on 11/20/2019. He has had some improvement as far as his energy, though remains quite fatigued and limited with his activity status compared to his baseline. Though this is quite active for an 89-year-old, he does get out in the garden, takes care of his house, and continues to manage all his ADLs independently. 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 He currently finds his quality of life is acceptable, he does have known CAD with a new diagnosis of congestive heart failure and atrial fib, he does have breathlessness, though this is noted with any kind of activity his heart which is paced at 60, rate goes up to 100-110 on examination. Patient was initiated on mirtazapine 7.5 mg daily. Initially he thought this did help with insomnia. We did do quite a bit of counseling regarding expectations around sleep, he also is quite anxious regarding his weight loss, and spends a lot of time around meal planning and try not to lose weight. He had at his lowest point his last few weeks been at 136.1, he is at 139.2 today, and has been as high as 140. In review he is actually doing fairly well, his biggest challenge is being by himself, finding things that are appealing to eat, and his taste changes. He has been able to get three Ensure in a day. Past Medical History: Patient has congestive heart failure, new diagnosis, hypertension, high cholesterol, coronary artery disease, atrial fib, GERD, BPH, chronic hearing l oss, osteoarthritis, fatigue, history of PMR, rosacea, Raynaud's syndrome, cholecystectomy, appendectomy, bowel surgery CABG, pacemaker replaced x1, tonsil/adenectomy. Social History - Living Situation Living arrangement: At home Living Situation: Alone Support System: Patient does live in a big home, with large gardens. He is a , his of a year and half ago with dementia on hospice. He does have 2 sons, one is coming next week, and he is heading to [place] for the [place] holidays. They are quite attentive and do come and help him with his multiple projects. He has good neighbors, he is actively involved in the community. 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 Medications/Allergies - Medications Home Medications: Ambulatory Orders Medication Instructions Recorded Confirmed Atorvastatin Calcium 40 mg PO DAILY 12/23/12 01/20/20 Dabigatran Etexilate Mesylate 150 mg PO BID 12/23/12 01/20/20 [Pradaxa] Fish Oil Liquid 1 tsp PO DAILY 12/23/12 01/20/20 Multivitamin [Multivitamins] 1 each PO DAILY 12/23/12 01/20/20 Lisinopril [Zestril] 2.5 mg PO DAILY 06/19/17 01/20/20 Metoprolol Succinate [Toprol Xl] 12.5 mg PO DAILY 06/19/17 01/20/20 Elemental Iron 64 tab ORAL DAILY 01/21/18 01/20/20 Lenalidomide [Revlimid] 10 mg PO DAILY 10/06/19 01/20/20 Cholecalciferol [Vitamin D3] 5,000 mcg PO DAILY 10/20/19 01/20/20 Mecobalamin [B12 Active] 1,000 mcg PO DAILY 10/20/19 01/20/20 Torsemide 15 mg PO DAILY 10/20/19 01/20/20 Spironolactone 25 mg PO DAILY 11/20/19 01/20/20 Mirtazapine 15 mg PO DAILY 01/19/20 01/20/20 Tumeric 1,000 mg PO DAILY 01/19/20 01/20/20 - Allergies Allergies/Adverse Reactions: Allergies Allergy/AdvReac Type Severity Reaction Status Date / Time Penicillins Allergy Edema Verified 01/19/20 11:59 Sulfa (Sulfonamide Allergy Rash Verified 01/19/20 11:59 Antibiotics) Review of Systems - Constitutional Constitutional: reports: Fatigue (most persistent symptom; better lately with counts improved), Weakness, Poor appetite (some improvement), Weight gain (139 (8 pounds since last visit)) - Eyes Eyes: reports: Vision loss, Corrective lenses - Ears, Nose & Throat Ears, Nose & Throat: reports: Hearing loss, Dry mouth. denies: Mouth lesions - Cardiovascular Cardiovascular: reports: Edema (mild left greater than right), Exertional dyspnea, Decr. exercise tolerance, Other (blood pressure log "eeking" up to 140- 150/ 60-79 but this is before meds). denies: Chest pain, Lightheadedness - Respiratory Respiratory: reports: SOB with exertion. denies: Cough, SOB at rest - Gastrointestinal Gastrointestinal: reports: Poor appetite, Early satiety, Other (taste changes). denies: Nausea, Reflux/heartburn - Genitourinary Genitourinary: reports: Frequency - Musculoskeletal Musculoskeletal: reports: Stiffness, Muscle weakness, Other (fell against right rib with cell phone; wondering if "cracked" is improving) - Integumentary Integumentary: reports: Dryness - Neurological Neurological: reports: General weakness. denies: Dizziness - Psychiatric Psychiatric: reports: Depression (mild). denies: Anxiety - Endocrine Endocrine: reports: Intolerance to cold - Hematologic/Lymphatic Hematologic/Lymph: Anemia (9.7) - All Other Systems All Other Systems: reports: Reviewed and negative Physical Exam - Vital Signs Temperature: 96.0 C Pulse Rate: 60 (paced at rest; activity up to 110) Respiratory Rate: 16 (at rest; 20 with activity ) O2 Saturation: 92 (ra @ rest) Blood Pressure: 128/62 - Physical Exam General Appearance: positive: No acute distress, Alert Eyes Bilateral: positive: Normal inspection ENT: positive: No signs of dehydration Neck: positive: Trachea midline Cardiovascular: positive: Irregularly irregular Respiratory: positive: No respiratory distress, Diminished in bases, Rales (crackles LLL;) Abdomen: positive: Soft, Nml bowel sounds Skin: positive: Pallor, Dryness Extremities: positive: Pedal edema (1+ left greater than right; pitting; has support hose but go to mid calf with indentions) Neurologic/Psychiatric: positive: Oriented x3, Mood/affect nml, Weakness Palliative Care - POLST Patient has POLST: Yes POLST Status: DNR, Selective Treatment Pain: Location (pain right rib area; tender with palpation/no bruising; improving but uncomfortable to sleep on right side; interfering with sleep) Tiredness/Fatigue: Mild (1-3) Drowsiness/Sedation: Mild (1-3), Comment (takes nap;) Nausea: None Anorexia: Moderate (4-6) Dyspnea: Moderate (4-6) Depression: Mild (1-3) Anxiety: Mild (1-3) (related to eating) Feelings of wellbeing/Perceived Quality of Life: Good, Acceptable, Improved Sleep: Variable sleep pattern Constipation: No Performance Status: Patient does have limiting dyspnea, but is quite active. Ambulates up and down the stairs, and around his property by pacing himself. He is independent in ADLs. He is quite remarkable for 89 years of age with all his comorbidities - Palliative Care Discussion: Patient did provide a durable part of health litigation attorney, unfortunately did list his and our leak is since , but did have directions regarding nomination of success or for success or would be Mejia Escalante, followed by Tarun Escalante, which defaults to exercise any of the [place] set forth [place] in his DPOA. This was put forth in 1992, at this point in time this would still be valid, though we will see if wants to update to newer form. We did complete a POLST last time, with DN AR/DN I with selective treatments. Weighing benefits and burdens of treatment decisions as they come along. He did have hospice for his , so is familiar with that continuum. He currently perceives his current quality of life is good, he does have a strong maximino, and though he is quite isolated still remains engaged with family and friends. Impression and Recommendations - Palliative Care Impression: This is a mustapha 89-year-old gentleman with myelodysplastic syndrome, currently responding to Revlimid 10 mg daily. He continues with some persistent fatigue, breathlessness has had some weight gain since her last visit, but continues with taste changes and anxiety regarding addressing his eating. He continues to have some persistent insomnia, though on review it does appear improved from last time, but he does have good family support. Palliative care to continue to provide support for symptom management and anticipatory guidance. Recommendations/Counseling Done: 1. Anorexia. This is multifactorial, most likely impacted by his Revlimid given his taste changes. He has had resultant weight loss, though he has gained several pounds over this last month. Did review his strategies and work rounds for increasing his calories, despite early satiety and taste changes. Counseling provided to decrease his anxiety regarding this, he is doing quite well, but perseverates on this too much most likely for his quality of life. He is in agreement with this. Reviewed his current strategies, aids counselor provided regarding how to add some calories, and encouraged to enjoy more his meals. We will go ahead and increase his mirtazapine to 15 mg, though patient does not perceive it has helped, he has had some slow weight gain. 2. Lower extremity edema. Patient is at high risk given his new diagnosis of CHF. He does have a few crackles in his left lower lobe. Patient has 1+ edema counseling provided regarding using support hose. Patient has had compression stockings in the past, patient would not be able to manage those independently. We did identify a resource to order support diabetic socks, knee-high's. Particular with patient's plan to travel in the future. 3. Insomnia. Patient is up several times a night, mostly to void. Counseling provided regarding sleep hygiene, also to reinforce realistic expectations regarding sleep cycles. Will evaluate if increasing mirtazapine of help, discussed if not perceived benefit with anorexia or sleep, can taper. Will go ahead and order 50 mg tabs, and trial for at least 2 weeks. Patient is in agreement. 4. Depression. Patient is quite isolated, he does have a son coming from [place] to visit next week prior to , he is looking forward to this visit. He also is planning to go to [place] to visit his other son, they are quite isolated and quarantined given their health problems and work schedules. They do have a plan to be able to help him manage travel, counseling provided regarding ways to increase his safety. Patient expresses wish to have [place] with family, given he does not know how many [place] is he has left. 5. Right rib contusion. Can counseled if patient even had a cracked rib, we would not be doing things differently. Encouraged on regular deep breathing exercises, Tylenol for bedtime to assist with pain relief and sleep. 6. Advanced care planning. Patient is doing quite well on his current regimen, perceives his quality of life is good. POLST is in place. Will get DPOA on record at the hospital, may want an update to a more recent form but this will stand as is. Patient's goals are to way decisions in the context of quality of life and benefit and burdens, he would like to have possible to stay in his home for as long as possible and including transition to hospice. Time Spent: 60 minutes with greater than 50% of this done in counseling regarding symptom management of anorexia, insomnia, lower extremity edema, and anticipatory guidance.
== END 2020-02-10 10:31 | disposition home or self-care (01) ==
LOC: PC 10:30
PROVIDERS: ATTEND Nurse Practitioner Adult Health
DX: Z51.5 Encounter for palliative care (principal); R63.0 Anorexia; R60.0 Localized edema; G47.00 Insomnia, unspecified; F32.9 Major depressive disorder, single episode, unspecified; D46.9 Myelodysplastic syndrome, unspecified; I25.10 Atherosclerotic heart disease of native coronary artery without angina pectoris; I11.0 Hypertensive heart disease with heart failure; I50.9 Heart failure, unspecified; I48.91 Unspecified atrial fibrillation; Z95.1 Presence of aortocoronary bypass graft; Z95.0 Presence of cardiac pacemaker; Z79.899 Other long term (current) drug therapy; Z66 Do not resuscitate
CPT/HCPCS: 99350

== ENCOUNTER 2020-03-07 15:51 | Outpatient (CLI) | payer MEDICARE, OTHER ==
[2020-03-07 16:20] LABS: CALCIUM 8.8 mg/dL (8.5-10.3); CREATININE 1.3 mg/dL (0.6-1.2)
== END 2020-03-07 15:52 | disposition home or self-care (01) ==
LOC: LAB 15:51
PROVIDERS: ATTEND Internal Medicine Cardiovascular Disease
DX: I11.0 Hypertensive heart disease with heart failure (principal); I50.32 Chronic diastolic (congestive) heart failure; I25.5 Ischemic cardiomyopathy; E78.5 Hyperlipidemia, unspecified
CPT/HCPCS: 36415; 80048; 83880

== ENCOUNTER 2020-03-15 14:39 | Outpatient (CLI) | payer MEDICARE, OTHER ==
[2020-03-15 15:07] LABS: CREATININE 1.1 mg/dL (0.6-1.2)
== END 2020-03-15 14:40 | disposition home or self-care (01) ==
LOC: LAB 14:39
PROVIDERS: ATTEND Internal Medicine Cardiovascular Disease
DX: I50.32 Chronic diastolic (congestive) heart failure (principal)
CPT/HCPCS: 36415; 80048; 83880